=== PATIENT | female | born 1995 | race Caucasian/White ===

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

== ENCOUNTER → 2017-09-14 | Outpatient (CLI) | payer OTHER ==
[2017-09-14 09:09] LABS: 1 HR GLUCOSE 121 MG/DL (LESS THAN 180)
[2017-09-14 09:09] LABS: GLUCOSE, FASTING 81 MG/DL (LESS THAN 95)
[2017-09-14 10:29] LABS: 2 HR GLUCOSE 137 MG/DL (LESS THAN 155)
[2017-09-14 11:33] LABS: 3 HR GLUCOSE 87 MG/DL (LESS THAN 140)
== END ==
LOC: M LAB 07:16
DX: Z71.89 Other specified counseling (principal)
CPT/HCPCS: 82951

== ENCOUNTER 2018-02-17 16:48 | Outpatient (CLI) | payer OTHER | END 2018-02-17 19:13 | disposition home or self-care (01) | LOC: M LDO 16:48 | DX: O26.893 Other specified pregnancy related conditions, third trimester (principal); Z3A.36 36 weeks gestation of pregnancy | CPT/HCPCS: 76815 ==

== ENCOUNTER 2018-03-09 14:06 | Inpatient (IN) | payer OTHER ==
[2018-03-09 15:10] LABS: BEDSIDE GLUCOSE 91 MG/DL (70-105)
[2018-03-09 16:55] LABS: HEMATOCRIT 33.1 % (36.0-47.0); HEMOGLOBIN 10.7 g/dl (12.0-15.5); MEAN CORPUSCULAR HEMOGLOBIN 27.4 pg (27.0-33.0); MEAN CORPUSCULAR HGB CONC 32.3 g/dl (32.0-36.5); MEAN CORPUSCULAR VOLUME 84.9 fl (80.0-96.0); PLATELET COUNT, AUTOMATED 222 10^3/uL (150-450); WHITE BLOOD COUNT 11.4 10^3/uL (4.0-10.0)
[2018-03-09] MEDS ORDERED: ACETAMINOPHEN 325 MG TAB PO (17:00)
[2018-03-09] MEDS: ACETAMINOPHEN 500 MG TAB PO (17:13)
[2018-03-09 17:20] LABS: CREATININE,RANDOM URINE < 13.0 MG/DL
[2018-03-09 17:20] LABS: TOTAL PROTEIN,RANDOM URINE < 5.0 MG/DL (0.0-12.0)
[2018-03-09 17:42] LABS: ALT/SGPT 9 U/L (12-78); AST/SGOT 12 U/L (7-37); BILIRUBIN,TOTAL 0.3 MG/DL (0.2-1.0); CREATININE FOR GFR 0.43 MG/DL (0.55-1.30); GLUCOSE,RANDOM 76 MG/DL (LESS THAN 200); LDH LACTATE DEHYDROGENASE 148 U/L (84-246); URIC ACID 3.9 MG/DL (2.6-6.0)
[2018-03-09 19:35] LABS: ESTIMATED AVERAGE GLUCOSE 105 MG/DL (60-110); HEMOGLOBIN A1c 5.3 %
[2018-03-09] MEDS: CALCIUM CARBONATE 500 MG CHEW U/D PO (20:41)
[2018-03-09] MEDS: miSOPROStol 50 MCG 1/2 TAB (S0191) PO (21:22)
[2018-03-09 21:39] LABS: BEDSIDE GLUCOSE 80 MG/DL (70-105)
[2018-03-09] MEDS: LR 1,000 ML IV (23:41)
[2018-03-09 23:44] LABS: BEDSIDE GLUCOSE 73 MG/DL (70-105)
[2018-03-10 01:36] LABS: BEDSIDE GLUCOSE 78 MG/DL (70-105)
[2018-03-10 04:01] LABS: BEDSIDE GLUCOSE 79 MG/DL (70-105)
[2018-03-10 06:13] LABS: BEDSIDE GLUCOSE 75 MG/DL (70-105)
[2018-03-10] MEDS: miSOPROStol 25 MCG 1/4 TAB (S0191) PV (06:54)
[2018-03-10] MEDS: LR 1,000 ML IV ×3 (06:57→18:44)
[2018-03-10 08:17] LABS: BEDSIDE GLUCOSE 83 MG/DL (70-105)
[2018-03-10] MEDS: NALBUPHINE HCL 10 MG/ML AMP (J2300) IV (10:03)
[2018-03-10] MEDS: PROMETHAZINE INJ 25 MG/ML VIAL (J2550) IV (10:03)
[2018-03-10] MEDS: NALBUPHINE HCL 10 MG/ML AMP (J2300) IM (10:06)
[2018-03-10] MEDS: OXYTOCIN DRIP 30 UNITS in APPROPRIATE DILUENT 1 EA IV (11:32)
[2018-03-10 14:44] LABS: BEDSIDE GLUCOSE 74 MG/DL (70-105)
[2018-03-10] MEDS ORDERED: FENTANYL 2MCG/ML ROPIVACAINE 0.2% IN 0.9% NACL 200ML IVBAG As Ordered (16:35)
[2018-03-10 17:38] LABS: BEDSIDE GLUCOSE 84 MG/DL (70-105)
[2018-03-10] MEDS ORDERED: FENTANYL/ROPIVACAINE/NACL BAG 200 ML EPIDURAL (18:00)
[2018-03-10] MEDS ORDERED: EPIDURAL COMMENT XX (18:00)
[2018-03-10] MEDS ORDERED: LACTATED RINGER'S 1000 ML IV (18:00)
[2018-03-10] MEDS ORDERED: ONDANSETRON 4MG/2ML VIAL (J2405) IV (18:00)
[2018-03-10] MEDS ORDERED: ePHEDrine SULFATE 25 MG/5 ML(5MG/ML) SYRINGE IV (18:00)
[2018-03-10] MEDS ORDERED: REFRIGERATOR IV KEYS XX (18:00)
[2018-03-10] MEDS ORDERED: NALOXONE INJ 0.4 MG/1 ML VIAL (J2310) IV (18:00)
[2018-03-10] MEDS ORDERED: diphenhydrAMINE INJ 50MG/ML VIAL (J1200) IV (18:00)
[2018-03-10] MEDS ORDERED: EPIDURAL/PCA KEYS XX (18:00)
[2018-03-10] MEDS ORDERED: MEASLES,MUMPS,RUBELLA VACCINE INJ (MMR-II) (90707) SC (23:00)
[2018-03-10] MEDS ORDERED: RHOGAM 300 MCG (1500 IU) INJ (J2790) IM (23:00)
[2018-03-10] MEDS ORDERED: ANUSOL HC CREAM 30GM TOP (23:00)
[2018-03-10] MEDS ORDERED: ACETAMINOPHEN 500 MG TAB PO (23:00)
[2018-03-10] MEDS ORDERED: DOCUSATE SODIUM 100 MG CAP PO (23:00)
[2018-03-10] MEDS ORDERED: METHYLERGONOVINE MALEATE 0.2 MG TAB PO (23:00)
[2018-03-10 23:14] LABS: CORD GAS ABE A -5.3; CORD GAS ABE V -3.4; CORD GAS HCO3 A 23.5 MEQ/L; CORD GAS HCO3 V 23.4 MEQ/L; CORD GAS O2 SAT V 47.9 %; CORD GAS PCO2 A 58.5 mmHg; CORD GAS PH A 7.221 UNITS; CORD GAS PH V 7.306 UNITS; CORD GAS PO2 A 17.8 mmHg; CORD GAS PO2 V 21.6 mmHg; CORD GAS SBC A 18.5 MEQ/L; CORD GAS SBC V 20.3 MEQ/L; CORD GAS TCO2 A 25.3 MEQ/L; CORD GAS TCO2 V 24.9 MEQ/L
[2018-03-11] MEDS: LR 1,000 ML IV ×2 (00:51→08:51)
[2018-03-11] MEDS ORDERED: OXYTOCIN INJ 10 UNITS/ML VIAL (J2590) As Ordered (04:05)
[2018-03-11 06:58] LABS: HEMATOCRIT 28.5 % (36.0-47.0); HEMOGLOBIN 9.4 g/dl (12.0-15.5); MEAN CORPUSCULAR HEMOGLOBIN 28.2 pg (27.0-33.0); MEAN CORPUSCULAR VOLUME 85.6 fl (80.0-96.0); PLATELET COUNT, AUTOMATED 178 10^3/uL (150-450); RED BLOOD COUNT 3.33 10^6/uL (4.00-5.40); RED CELL DISTRIBUTION WIDTH 14.1 % (11.5-14.5); WHITE BLOOD COUNT 16.5 10^3/uL (4.0-10.0)
[2018-03-11] MEDS: PRENATAL VITAMINS CHEWABLE TABLET PO (07:35)
[2018-03-11] MEDS: IBUPROFEN 600 MG TAB PO ×2 (07:36→13:45)
[2018-03-11] MEDS: MOM 30ML SUSPENSION UDC PO (18:54)
[2018-03-12] MEDS: IBUPROFEN 600 MG TAB PO ×2 (07:36→19:38)
[2018-03-12] MEDS: PRENATAL VITAMINS CHEWABLE TABLET PO (08:28)
[2018-03-12] MEDS: INFLUENZA QUADRIVALENT PF VACCINE 0.5ML SYRINGE (90686) IM (08:29)
[2018-03-12] MEDS: DIBUCAINE 1% OINTMENT 30GM TOP (13:31)
[2018-03-13 07:48] LABS: HEMATOCRIT 29.1 % (36.0-47.0); HEMOGLOBIN 9.4 g/dl (12.0-15.5); MEAN CORPUSCULAR HGB CONC 32.3 g/dl (32.0-36.5); MEAN CORPUSCULAR VOLUME 86.6 fl (80.0-96.0); PLATELET COUNT, AUTOMATED 185 10^3/uL (150-450); RED BLOOD COUNT 3.36 10^6/uL (4.00-5.40); RED CELL DISTRIBUTION WIDTH 14.5 % (11.5-14.5); WHITE BLOOD COUNT 12.2 10^3/uL (4.0-10.0)
[2018-03-13] MEDS: PRENATAL VITAMINS CHEWABLE TABLET PO (08:10)
[2018-03-13] MEDS: IBUPROFEN 600 MG TAB PO (08:11)
[2018-03-13 08:15] LABS: ALBUMIN 2.2 GM/DL (3.2-5.2); ALBUMIN/GLOBULIN RATIO 0.63 (1.00-1.93); ALKALINE PHOSPHATASE 119 U/L (45-117); ALT/SGPT 11 U/L (12-78); ANION GAP 9 MEQ/L (8-16); AST/SGOT 15 U/L (7-37); BILIRUBIN,TOTAL 0.2 MG/DL (0.2-1.0); BLOOD UREA NITROGEN 6 MG/DL (7-18); CALCIUM LEVEL 8.2 MG/DL (8.5-10.1); CARBON DIOXIDE LEVEL 24 MEQ/L (21-32); CHLORIDE LEVEL 110 MEQ/L (98-107); CREATININE FOR GFR 0.44 MG/DL (0.55-1.30); GLUCOSE, FASTING 69 MG/DL (70-100); POTASSIUM SERUM 3.7 MEQ/L (3.5-5.1); SODIUM LEVEL 143 MEQ/L (136-145); TOTAL PROTEIN 5.7 GM/DL (6.4-8.2)
== END 2018-03-13 11:15 | disposition home or self-care (01) | DRG 774 ==
LOC: M LDO 14:06 → M OBS 03-11 00:34 → M LDI 18:44
PROVIDERS: Obstetrics & Gynecology
PROC: 3E0P7VZ Introduction of Hormone into Female Reproductive, Via Natural or Artificial Opening (ICD-10-PCS; 2018-03-09)
PROC: 10E0XZZ Delivery of Products of Conception, External Approach (ICD-10-PCS; principal; 2018-03-10)
DX: O24.425 Gestational diabetes mellitus in childbirth, controlled by oral hypoglycemic drugs (principal); O45.93 Premature separation of placenta, unspecified, third trimester; Z37.0 Single live birth; Z3A.38 38 weeks gestation of pregnancy; Z91.040 Latex allergy status; O14.94 Unspecified pre-eclampsia, complicating childbirth

== ENCOUNTER 2018-05-31 22:46 | Emergency (ER) | payer OTHER ==
[2018-06-01] MEDS: KETOROLAC 30 MG/ML VIAL (J1885) IV (01:15)
[2018-06-01] MEDS: ONDANSETRON 4MG/2ML VIAL (J2405) IV (01:15)
[2018-06-01 01:33] LABS: BASO % 0.2 % (0.0-1.0); EOS # 0.1 10^3/uL (0.0-0.50); EOS % 1.1 % (0.0-3.0); HEMOGLOBIN 13.2 g/dl (12.0-15.5); IMMATURE GRANULOCYTE % 0.4 % (0-3.0); LYMPH # 3.4 10^3/uL (1.5-6.5); LYMPH % 41.8 % (24.0-44.0); MEAN CORPUSCULAR HEMOGLOBIN 28.1 pg (27.0-33.0); MEAN CORPUSCULAR VOLUME 85.1 fl (80.0-96.0); MONO # 0.7 10^3/uL (0.0-0.8); NEUTROPHILS # 3.9 10^3/uL (1.8-7.7); NEUTROPHILS % 48.5 % (36.0-66.0); PLATELET COUNT, AUTOMATED 272 10^3/uL (150-450); RED CELL DISTRIBUTION WIDTH 14.6 % (11.5-14.5); WHITE BLOOD COUNT 8.1 10^3/uL (4.0-10.0)
[2018-06-01 02:01] LABS: ANION GAP 9 MEQ/L (8-16); BLOOD UREA NITROGEN 9 MG/DL (7-18); CALCIUM LEVEL 8.5 MG/DL (8.5-10.1); CARBON DIOXIDE LEVEL 24 MEQ/L (21-32); CHLORIDE LEVEL 108 MEQ/L (98-107); CK-MB VALUE MASS < 1.0 NG/ML (<3.6); CPK CREATINE PHOSPHOKINASE 98 U/L (26-192); CREATININE FOR GFR 0.54 MG/DL (0.55-1.30); GLOMERULAR FILTRATION RATE > 60.0 (>60); GLUCOSE, FASTING 91 MG/DL (70-100); MB/CK RELATIVE INDEX 1.02 (< OR =4); POTASSIUM SERUM 4.3 MEQ/L (3.5-5.1); SODIUM LEVEL 141 MEQ/L (136-145); TROPONIN I < 0.02 NG/ML (< 0.10)
== END 2018-06-01 02:23 | disposition home or self-care (01) ==
LOC: M ED 06-01 02:23
DX: R07.89 Other chest pain (principal); R42 Dizziness and giddiness; R11.0 Nausea; I10 Essential (primary) hypertension; Z87.19 Personal history of other diseases of the digestive system; Z79.899 Other long term (current) drug therapy; Z91.040 Latex allergy status
CPT/HCPCS: J2405

== ENCOUNTER → 2018-11-01 | Outpatient (CLI) | payer OTHER ==
[~2018-11-01] MED LIST: COLA100C5 PO; IBUP-1114 PO; MAPA500T2 PO; METF500T13 PO; NAPR-837 PO; PRENTAB9 PO; RANI15TA PO
--- NOTE | 2018-11-01 10:41 | REP ---
FIRST TRIMESTER ULTRASOUND: Real-time sonographic evaluation of the pelvis was performed utilizing transabdominal and endovaginal technique. The uterus measures 9.4 x 4.4 x 7.5 cm. There is endometrial thickening at 22 mm. No gestational sac is seen in the uterus. Right ovary measures 4.3 x 2.6 x 3.5 cm. Left ovary measures 3.0 x 3.1 x 1.9 cm. There is no evidence of ovarian torsion. Complex structure in the right ovary may represent a complex corpus luteum 2.9 x 1.6 x 2.8 cm. No free fluid is seen. IMPRESSION: Thickened endometrium. No gestational sac seen in the endometrial canal. Complex structure in the right ovary may represent a complex corpus luteum 2.9 cm in diameter. Differential diagnosis would include very early intrauterine , missed AB or ectopic . Suggest correlation with serial quantitaive beta HCG values and followup ultrasound as necessary. Electronically Signed by Jesus Mukherjee MD 11/01/2018 04:26 P
== END ==
LOC: M RAD 09:16
PROVIDERS: ATTEND Midwife
DX: R93.5 Abnormal findings on diagnostic imaging of other abdominal regions, including retroperitoneum (principal)

== ENCOUNTER → 2019-08-15 | Outpatient (CLI) | payer OTHER ==
--- NOTE | 2019-08-15 18:00 | REP ---
Focused right breast sonography: History: Palpable lump in the 9 o'clock position. The patient reports that this has been present for 2 years. The patient discontinued breast-feeding 3 weeks prior. No comparison breast imaging. Sonographic findings: Heterogeneous fibroglandular background echotexture is seen. At the site of the palpable lump at the 9 o'clock position there is a hypoechoic very superficial subdermal nodule measuring 10 x 7 x 6 mm in overall dimension. There is no discernible blood flow. There is some enhanced through transmission and well-defined margins. Its long axis is parallel to the skin. It is compatible with but not specific for fibroadenoma. Impression: BIRADS category III probably benign findings. 10 mm subdermal hypoechoic nodule may reflect complex cyst versus fibroadenoma. Repeat focused right breast sonography recommended in 6 months. Clinical follow-up is advised.
== END ==
LOC: M WHC 14:48
PROVIDERS: ATTEND Nurse Practitioner Women's Health
DX: N63.11 Unspecified lump in the right breast, upper outer quadrant (principal)

== ENCOUNTER 2019-10-21 11:50 | Emergency (ER) | payer OTHER ==
[~2019-10-21] VITALS: Ht 157.5 cm; Wt 79.5 kg
[2019-10-21 12:54] LABS: BASO % 0.4 % (0.0-1.0); EOS # 0.1 10^3/uL (0.0-0.5); EOS % 0.5 % (0.0-3.0); HEMOGLOBIN 13.7 g/dl (12.0-15.5); LYMPH % 31.8 % (24.0-44.0); MEAN CORPUSCULAR HEMOGLOBIN 28.7 pg (27.0-33.0); MEAN CORPUSCULAR HGB CONC 33.4 g/dl (32.0-36.5); MONO # 0.7 10^3/uL (0.0-0.8); MONO % 7.1 % (0.0-5.0); NEUTROPHILS # 5.5 10^3/uL (1.5-8.5); NEUTROPHILS % 59.7 % (36.0-66.0); PLATELET COUNT, AUTOMATED 269 10^3/uL (150-450); RED BLOOD COUNT 4.77 10^6/uL (4.00-5.40); WHITE BLOOD COUNT 9.3 10^3/uL (4.0-10.0)
[2019-10-21 13:24] LABS: BLOOD UREA NITROGEN 9 MG/DL (7-18); CARBON DIOXIDE LEVEL 23 MEQ/L (21-32); CHLORIDE LEVEL 110 MEQ/L (98-107); CREATININE FOR GFR 0.66 MG/DL (0.55-1.30); GLOMERULAR FILTRATION RATE > 60.0 (>60); GLUCOSE, FASTING 114 MG/DL (70-100); POTASSIUM SERUM 3.9 MEQ/L (3.5-5.1); SODIUM LEVEL 141 MEQ/L (136-145)
[2019-10-21] MEDS ORDERED: ONDANSETRON 4 MG ORAL DISINTEGRATING TAB (Q0162 PER 1MG) PO ONE (13:45)
[2019-10-21] MEDS ORDERED: MECLIZINE 25 MG TABLET PO ONE (13:45)
[2019-10-21] MEDS ORDERED: ACETAMINOPHEN 325 MG TAB PO ONE (14:45)
[2019-10-21] MEDS ORDERED: diazePAM 2 MG TAB PO ONE (14:45)
[2019-10-21] MEDS ORDERED: ONDA4TAB6 PO (15:50)
[2019-10-21] MEDS ORDERED: MECL1TAB31 PO (15:50)
[2019-10-21 16:04] VITALS: BP 131/78
--- NOTE | 2019-10-21 16:41 | REP ---
CT BRAIN WITHOUT CONTRAST: CT brain performed without IV contrast. Coronal reconstruction images are performed. The ventricles are normal in size and position with no midline shift or mass effect. Mukherjee/white differentiation is well maintained. There is no acute hemorrhage or extra-axial fluid collection. Bone window examination is unremarkable. IMPRESSION: Negative noncontrast CT brain. Electronically Signed by Jesus Mukherjee MD 10/21/2019 04:53 P
== END 2019-10-21 16:07 | disposition home or self-care (01) ==
LOC: M ED 11:50
DX: H81.10 Benign paroxysmal vertigo, unspecified ear (principal); I10 Essential (primary) hypertension; Z91.040 Latex allergy status
CPT/HCPCS: 36415; 70450; 80048; 84702; 85025; 99284; Q0162

== ENCOUNTER 2019-11-13 15:07 | Emergency (ER) | payer OTHER ==
[~2019-11-13] VITALS: Ht 157.5 cm; Wt 77.8 kg
[~2019-11-13 15:07] MED LIST changes: +MECL1TAB31 PO; +ONDA4TAB6 PO
[2019-11-13] MEDS ORDERED: ACET-683 PO (15:15)
[2019-11-13] MEDS ORDERED: NS 1,000 ML IV ONE (16:00)
[2019-11-13 16:02] LABS: BASO % 0.3 % (0.0-1.0); EOS % 0.4 % (0.0-3.0); HEMATOCRIT 42.9 % (36.0-47.0); HEMOGLOBIN 14.4 g/dl (12.0-15.5); LYMPH # 2.7 10^3/uL (1.5-5.0); LYMPH % 28.7 % (24.0-44.0); MEAN CORPUSCULAR HEMOGLOBIN 29.3 pg (27.0-33.0); MEAN CORPUSCULAR HGB CONC 33.6 g/dl (32.0-36.5); MEAN CORPUSCULAR VOLUME 87.2 fl (80.0-96.0); MONO # 0.6 10^3/uL (0.0-0.8); MONO % 6.2 % (0.0-5.0); NEUTROPHILS # 5.9 10^3/uL (1.5-8.5); NEUTROPHILS % 63.6 % (36.0-66.0); PLATELET COUNT, AUTOMATED 287 10^3/uL (150-450); RED BLOOD COUNT 4.92 10^6/uL (4.00-5.40); WHITE BLOOD COUNT 9.2 10^3/uL (4.0-10.0)
[2019-11-13 16:10] LABS: HCG, SERUM QUALITATIVE NEGATIVE (NEGATIVE)
[2019-11-13 16:22] LABS: BLOOD UREA NITROGEN 12 MG/DL (7-18); CALCIUM LEVEL 9.1 MG/DL (8.5-10.1); CARBON DIOXIDE LEVEL 24 MEQ/L (21-32); CHLORIDE LEVEL 106 MEQ/L (98-107); CK-MB VALUE MASS < 1.0 NG/ML (<3.6); CPK CREATINE PHOSPHOKINASE 82 U/L (26-192); CREATININE FOR GFR 0.46 MG/DL (0.55-1.30); ETHYL ALCOHOL (ETHANOL) < 0.003 % (0.000-0.010); GLOMERULAR FILTRATION RATE > 60.0 (>60); GLUCOSE, FASTING 99 MG/DL (70-100); MB/CK RELATIVE INDEX 1.22 (< OR =4); POTASSIUM SERUM 3.5 MEQ/L (3.5-5.1); SODIUM LEVEL 138 MEQ/L (136-145); THYROID STIMULATING HORMONE 0.815 uIU/ML (0.358-3.740); TROPONIN I < 0.02 NG/ML (< 0.10)
[2019-11-13 16:45] VITALS: BP 106/64
[2019-11-13 17:14] LABS: AMPHETAMINES LEVEL URINE NEGATIVE (NEGATIVE); BARBITURATES URINE NEGATIVE (NEGATIVE); BENZODIAZEPINES URINE NEGATIVE (NEGATIVE); CANNABINOIDS URINE POSITIVE (NEGATIVE); COCAINE METABOLITE URINE NEGATIVE (NEGATIVE); METHADONE URINE NEGATIVE (NEGATIVE); OPIATES URINE NEGATIVE (NEGATIVE); PHENCYCLIDINE URINE NEGATIVE (NEGATIVE)
--- NOTE | 2019-11-14 16:41 | ECGEPIP ---
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
== END 2019-11-13 16:52 | disposition home or self-care (01) ==
LOC: M ED 15:07
DX: R55 Syncope and collapse (principal); I10 Essential (primary) hypertension; Z91.040 Latex allergy status
CPT/HCPCS: 80048; 80307; 81001; 82550; 82553; 83735; 84443; 84484; 84703; 85025; 85730; 87086; 93005; 93041; 94760; 96360; 99284; G0480

== ENCOUNTER → 2020-05-17 | Outpatient (CLI) | payer OTHER ==
[~2020-05-17] MED LIST changes: +ACET-683 PO
[2020-05-17 12:47] LABS: BASO % 0.4 % (0.0-1.0); EOS # 0.1 10^3/uL (0.0-0.5); HEMATOCRIT 44.5 % (36.0-47.0); HEMOGLOBIN 14.6 g/dl (12.0-15.5); LYMPH # 2.4 10^3/uL (1.5-5.0); LYMPH % 31.8 % (24.0-44.0); MEAN CORPUSCULAR HGB CONC 32.8 g/dl (32.0-36.5); MEAN CORPUSCULAR VOLUME 91.6 fl (80.0-96.0); MONO # 0.8 10^3/uL (0.0-0.8); MONO % 10.4 % (0.0-5.0); NEUTROPHILS # 4.3 10^3/uL (1.5-8.5); NEUTROPHILS % 55.9 % (36.0-66.0); PLATELET COUNT, AUTOMATED 303 10^3/uL (150-450); RED BLOOD COUNT 4.86 10^6/uL (4.00-5.40); WHITE BLOOD COUNT 7.6 10^3/uL (4.0-10.0)
[2020-05-17 13:49] LABS: ALBUMIN 4.4 GM/DL (3.2-5.2); ALT/SGPT 13 U/L (12-78); AMYLASE 41 U/L (25-115); BILIRUBIN,TOTAL 0.4 MG/DL (0.2-1.0); BLOOD UREA NITROGEN 8 MG/DL (7-18); CALCIUM LEVEL 9.3 MG/DL (8.5-10.1); CARBON DIOXIDE LEVEL 25 MEQ/L (21-32); CHLORIDE LEVEL 106 MEQ/L (98-107); CREATININE FOR GFR 0.56 MG/DL (0.55-1.30); FREE T4 1.31 NG/DL (0.76-1.46); GLOMERULAR FILTRATION RATE > 60.0 (>60); GLUCOSE, FASTING 84 MG/DL (70-100); LIPASE 67 U/L (73-393); POTASSIUM SERUM 4.6 MEQ/L (3.5-5.1); SODIUM LEVEL 138 MEQ/L (136-145); THYROID STIMULATING HORMONE 0.762 uIU/ML (0.358-3.740); TOTAL PROTEIN 7.5 GM/DL (6.4-8.2)
--- NOTE | 2020-05-18 03:27 | REP ---
INDICATION: LOWER ABDOMINAL PAIN, DIARRHEA COMPARISON: None. TECHNIQUE: Supine view of the abdomen and pelvis. FINDINGS: Bowel gas pattern is nonspecific and without obstruction or perforation. No organomegaly. No abnormal calcifications. Skeletal structures intact. IMPRESSION: Normal abdominal radiograph. <Electronically signed by Mayo Lynch > 05/18/20 [id number]
== END ==
LOC: M WUC 10:25
PROVIDERS: ATTEND Physician Assistant
DX: R19.7 Diarrhea, unspecified (principal); R10.30 Lower abdominal pain, unspecified

== ENCOUNTER 2020-07-17 08:25 | Emergency (ER) | payer OTHER ==
[~2020-07-17] VITALS: Ht 157.5 cm; Wt 72.5 kg
--- OUTSIDE RECORDS SUMMARY | 2020-07-17 08:32 | CCD ---
Author Author [facility] Organization [facility] Address Unknown Phone Unavailable Care Team Providers Care Qa Manager Name Role Phone Angel ALVARENGA MD Unavailable Unavailable VENERUSAngel MD Unavailable Unavailable VENERUSAngel MD Unavailable Unavailable VENERUSAngel MD Unavailable Unavailable VENERUSAngel MD Unavailable Unavailable VENERUSAngel MD Unavailable Unavailable VENERUSAngel MD Unavailable Unavailable VENERUSAngel MD Unavailable Unavailable VENERUSAngel MD Unavailable Unavailable LETTIERE, Sebastián FRAZIER Unavailable Unavailable LETTIERE, Sebastián FRAZIER Unavailable Unavailable LETTIERE, Sebastián FRAZIER Unavailable Unavailable LETTIERE, Sebastián FRAZIER Unavailable Unavailable LETTIERE, Sebastián FRAZIER Unavailable Unavailable LETTIERE, Sebastián FRAZIER Unavailable Unavailable LETTIERE, Sebastián FRAZIER Unavailable Unavailable LETTIERE, Sebastián FRAZIER Unavailable Unavailable LETTIERE, Sebastián FRAZIER Unavailable Unavailable LETTIERE, Sebastián FRAZIER Unavailable Unavailable LETTIERE, Sebastián FRAZIER Unavailable Unavailable LETTIERE, Sebastián FRAZIER Unavailable Unavailable LETTIERE, Sebastián FRAZIER Unavailable Unavailable LETTIERE, Sebastián FRAZIER Unavailable Unavailable LETTIERE, Sebastián FRAZIER Unavailable Unavailable LETTIERE, Sebastián FRAZIER Unavailable Unavailable LETTIERE, Sebastián FRAZIER Unavailable Unavailable LETTIERE, Sebastián FRAZIER Unavailable Unavailable LETTIERE, Sebastián FRAZIER Unavailable Unavailable LETTIERE, Sebastián FRAZIER Unavailable Unavailable LETTIERE, A KEISHA PA Unavailable Unavailable LETTIERE, A KEISHA PA Unavailable Unavailable LETTIERE, A KEISHA PA Unavailable Unavailable LETTIERE, A KEISHA PA Unavailable Unavailable LETTIERE, A KEISHA PA Unavailable Unavailable LETTIERE, A KEISHA PA Unavailable Unavailable LETTIERE, A KEISHA PA Unavailable Unavailable LETTIERE, A KEISHA PA Unavailable Unavailable LETTIERE, A KEISHA PA Unavailable Unavailable Re-disclosure Warning The records that you are about to access may contain information from federally-assisted alcohol or drug abuse programs. If such information is present, then the following federally mandated warning applies: This information has been disclosed to you from records protected by federal confidentiality rules (42 CFR part 2). The federal rules prohibit you from making any further disclosure of this information unless further disclosure is expressly permitted by the written consent of the person to whom it pertains or as otherwise permitted by 42 CFR part 2. A general authorization for the release of medical or other information is NOT sufficient for this purpose. The Federal rules restrict any use of the information to criminally investigate or prosecute any alcohol or drug abuse patient.The records that you are about to access may contain highly sensitive health information, the redisclosure of which is protected by Article 27-F of the [facility] Public Health law. If you continue you may have access to information: Regarding HIV / AIDS; Provided by facilities licensed or operated by the [facility] Office of Mental Health; or Provided by the [facility] Office for People With Developmental Disabilities. If such information is present, then the following [facility] mandated warning applies: This information has been disclosed to you from confidential records which are protected by state law. State law prohibits you from making any further disclosure of this information without the specific written consent of the person to whom it pertains, or as otherwise permitted by law. Any unauthorized further disclosure in violation of state law may result in a fine or fdc sentence or both. A general authorization for the release of medical or other information is NOT sufficient authorization for further disc losure. Allergies and Adverse Reactions Type Description Substance Reaction Status Data Source(s ) No Known Drug Allergies No Known Drug Allergies [facility] ENVIRONMENTAL LATEX LATEX [facility] Substance/Environmental Agent Allergy Substance/Environmenta l Agent Allergy Latex [facility] ([facility] Encounters Encounter Providers Location Date Indications Data Source(s ) Outpatient ED-IMAG 05/29/2020 01:47:00 PM EST - 05/29/2020 01:48:00 PM EST LLQ ABD PAIN [facility] LLQ ABD PAIN Patient discharged. Outpatient Attender: KEISHA garnica 05/17/2020 08:30:00 AM EST [facility] ([facility], [facility]) [facility] 12/13/2019 08:02:44 PM EDT [facility] Emergency Attender: NOAH ALVARENGA MD 11/09 05:11:00 PM EDT - 11/10/2019 07:05:00 PM EDT [facility] Patient discharged. [facility] 08/03/2019 09:01:14 PM EST [facility] 08/03/2019 12:05:01 PM EST [facility] 08/03/2019 12:01:01 PM EST [facility] Medications Medication Brand Name Start Date Product Form Dose Route Admi nistrative Instructions Pharmacy Instructions Status Indications Reaction Description Data Source(s) No Active Medications 05/17/2020 12:00:00 AM EST completed [facility] ([facility]) Dicyclomine Hydrochloride 10 MG Oral Capsule Dicyclomine HCL 05/17/2020 12:00:00 AM EST ORAL active [facility] ([facility]) Alprazolam 0.5 MG Oral Tablet Alprazolam 12/12/2019 12:00:00 AM EDT ORAL active [facility] ([facility]) Ondansetron 4 MG Disintegrating Oral Tablet Ondansetron 10/21/2019 12:00:00 AM EDT completed [facility] ([facility]) Meclizine Hydrochloride 25 MG Oral Tablet Meclizine HCL 10/21/2019 12:00:00 AM EDT completed [facility] ([facility]) Insurance Providers Payer name Policy type / Coverage type Policy ID Covered alliance party ID Covered alliance party's relationship to suarez Policy Suarez Plan Information [facility] 1DayLater [id number] [facility] HUMANA - O/P [id number] 01 [id number] SELF PAY ONLY SP [facility] ACTIVE DUTY [id number] SP [id number] [facility] HUMANA - O/P [id number] 01 [id number] SELF PAY O [id number] S [id number] HUMANA [facility] REG O [id number] S [id number] ACTIVE DUTY [id number] SP [id number] [employer] [facility] TIA O [id number] S [id number] N REGIONAL CLAIMS LUIS -O/P [id number] 18 [id number] Problems, Conditions, and Diagnoses Code Display Name Description Problem Type Effective Dates Data Source(s) [id number] Syncope and collapse Syncope and collapse Problem 11/17/2019 12:00:00 AM EDT [facility] ([facility]) [id number] Personal history of nicotine dependence Personal history of nicotine dependence Diagnosis 11/10/2019 05:11:00 PM EDT [facility] R55 Syncope and collapse Syncope and collapse Diagnosis 11/10/2019 05:11:00 PM EDT [facility] Surgeries/Procedures Procedure Description Date Indications Data Source(s) ELECTROENCEPHALOGRAM W/REC AWAKE&ASLEEP 01/09/2020 12: 00:00 AM EDT [facility] ([facility]) ELECTROENCEPHALOGRAM W/REC AWAKE&ASLEEP 01/09/2020 12: 00:00 AM EDT [facility] ([facility]) Results ID Date Data Source [id number] 05/31/2020 11:13:00 AM [facility] Imaging Services Department Imaging Report [address], [place] [address] %(RAD)RES..mtdd.print.filter("line") Name: JACIEL RINCON : 1995 Age/Sex: 25F Ordering Provider: ALANNAH KINNEY MD Med Rec #: [id number] Reg Status: DEP REF Room #: Date of Service: 05/29/20 Report Number: [id number] cc:ALANNAH KINNEY MD; PCP None Send Report To: [id number] CT/CT Abdomen & Pelvis No Contras Reason for exam: LEFT LOWER QUAD ABDOMINAL TENDERNESS FINDINGS: The liver, spleen, pancreas, adrenals, kidneys appear unremarkable. The gallbladder is contracted but otherwise appears unremarkable. There is no bowel dilatation or evidence of obstruction. No free fluid, pneumoperitoneum, or lymphadenopathy is identified. A very small fat containing umbilical hernia is present. The appendix appears unremarkable without any adjacent inflammation to suggest appendicitis. There are no signs of diverticulitis. The uterus and ovaries are unremarkable. The urinary bladder is nondistended but appears grossly unremarkable. The aorta is normal size without focal aneurysm. There is some mild atelectasis/scar at bilateral lung bases. No suspicious osseous lesion or acute fracture is identified. Moderate to large amount of fecal matter seen in the colon. IMPRESSION: Very small fat containing umbilical hernia. Moderate to large amount of fecal matter in portions of the colon. No acute disease process. While performing the above CT exam, the following dose reduction techniques wereused: *Automated exposure control *Adjustment of the mA and/or kV according to patient size *Use of iterative reconstruction technique CT Dose in mGy: Contrast Agent: Amount in ml: Method of Administration: REPORT SIGNATURE ON FILE Reported By: Ubaldo Chavez MD <Electronically signed by Ubaldo Chavez MD> 06/01/20 1055 Dictation Date/Time: 05/29/20 1447 Transcribed Date/Time: 05/31/20 1113 Litigation Specialist: JAX Name Value Range Interpretation Code Description Data Ariana rce(s) Supporting Document(s) ID Date Data Source [id number] 05/17/2020 10:28:00 AM EST [facility] ([facility]) Name Value Range Interpretation Code Description Data Ariana rce(s) Supporting Document(s) C reactive protein [Mass/volume] in Serum or Plasma by High sensitivity method 0.30 mg/dL 0.00-0.30 [facility] ([facility], [facility]) Patient notified with results today IgA [Mass/volume] in Serum or Plasma 102.0 mg/dL 70-400 [facility] ([facility]) Patient notified with results today Tissue transglutaminase IgA Ab [Units/volume] in Serum Labor atory test result 0-3 [facility]) Patient notified with results today ID Date Data Source [id number] 05/17/2020 10:28:00 AM EST [facility] ([facility]) Name Value Range Interpretation Code Description Data Ariana rce(s) Supporting Document(s) Lipoprotein lipase [Enzymatic activity/volume] in Serum or Plasm a 67 U/L 73-393 [facility] ([facility]) Patient notified with results today Amylase [Enzymatic activity/volume] in Serum or Plasma 41 U/L 25- 115 [facility]) Patient notified with results today ID Date Data Source [id number] 05/17/2020 10:28:00 AM EST [facility] ([facility]) Name Value Range Interpretation Code Description Data Ariana rce(s) Supporting Document(s) Thyroid Stimulating Hormone 0.762 uIU/ML 0.358-3.740 [facility] ([facility]) Patient notified with results today Free T4 1.31 ng/dL 0.76-1.46 [facility]) Patient notified with results today ID Date Data Source [id number] 05/17/2020 10:28:00 AM EST [facility]) Name Value Range Interpretation Code Description Data Ariana rce(s) Supporting Document(s) Glucose, Fasting 84 mg/dL 70-100 [facility] ([facility]) Patient notified with results today Blood Urea Nitrogen 8 mg/dL 7-18 [facility] ([facility]) Patient notified with results today Creatinine For GFR 0.56 mg/dL 0.55-1.30 [facility] ([facility]) Patient notified with results today Glomerular Filtration Rate Laboratory test result [facility] ([facility]) Patient notified with results today Potassium Serum 4.6 meq/L 3.5-5.1 [facility] ([facility]) Patient notified with results today Sodium Level 138 meq/L 136-145 [facility] ([facility]) Patient notified with results today Chloride Level 106 meq/L 98-107 [facility] ([facility]) Patient notified with results today Carbon Dioxide Level 25 meq/L 21-32 [facility] ([facility]) Patient notified with results today Calcium Level 9.3 mg/dL 8.5-10.1 [facility] ([facility]) Patient notified with results today Anion Gap 7 meq/L 8-16 [facility] ([facility]) Patient notified with results today Ast/Sgot 7 U/L 7-37 [facility] ([facility]) Patient notified with results today Alt/SGPT 13 U/L 12-78 [facility] ([facility]) Patient notified with results today Alkaline Phosphatase 99 U/L 45-117 [facility] ([facility]) Patient notified with results today Total Protein 7.5 GM/DL 6.4-8.2 [facility] ([facility]) Patient notified with results today Bilirubin,Total 0.4 mg/dL 0.2-1.0 [facility] ([facility]) Patient notified with results today Albumin 4.4 GM/DL 3.2-5.2 [facility] ([facility]) Patient notified with results today Albumin/Globulin Ratio 1.4 1.2-2.2 [facility] ([facility]) Patient notified with results today ID Date Data Source [id number] 05/17/2020 10:28:00 AM EST [facility] ([facility]) Name Value Range Interpretation Code Description Data Ariana rce(s) Supporting Document(s) White Blood Count 7.6 10 4.0-10.0 [facility] ([facility]) Patient notified with results today Red Blood Count 4.86 10 4.00-5.40 [facility]) Patient notified with results today Hemoglobin 14.6 g/dL 12.0-15.5 [facility]) Patient notified with results today Mean Corpuscular Volume 91.6 fl 80.0-96.0 M [facility]) Patient notified with results today Hematocrit 44.5 % 36.0-47.0 [facility] ([facility]) Patient notified with results today Mean Corpuscular Hemoglobin 30.0 pg 27.0-33.0 [facility] ([facility]) Patient notified with results today Mean Corpuscular HGB Conc 32.8 g/dL 32.0-36.5 [facility] ([facility]) Patient notified with results today Red Cell Distribution Width 12.3 % 11.5-14.5 [facility] ([facility]) Patient notified with results today Neutrophils % 55.9 % 36.0-66.0 [facility] ([facility]) Patient notified with results today Platelet Count, Automated 303 10 150-450 [facility] ([facility]) Patient notified with results today [place] % 10.4 % 0.0-5.0 [facility] ([facility]) Patient notified with results today Lymph % 31.8 % 24.0-44.0 [facility] ([facility]) Patient notified with results today Eos % 1.0 % 0.0-3.0 [facility] ([facility]) Patient notified with results today Immature Granulocyte % 0.5 % 0-3.0 [facility] ([facility]) Patient notified with results today Baso % 0.4 % 0.0-1.0 [facility] ([facility]) Patient notified with results today Nucleated Red Blood Cell % 0.0 % 0-0 [facility] ([facility]) Patient notified with results today Neutrophils # 4.3 10 1.5-8.5 [facility] ([facility]) Patient notified with results today Lymph # 2.4 10 1.5-5.0 [facility] ([facility], [facility]) Patient notified with results today [place] # 0.8 10 0.0-0.8 [facility] ([facility], [facility]) Patient notified with results today Eos # 0.1 10 0.0-0.5 [facility] ([facility], [facility]) Patient notified with results today Baso # 0.0 10 0.0-0.2 [facility] ([facility], [facility]) Patient notified with results today ID Date Data Source [id number] 11/14/2019 01:37:00 [place] [address] RESPIRATORY CARE REPORT ==== ---------NAME------- NUMBER SEX AGE ADMIT DISC. XRAY# F/C ERICJESSICA Quan [id number] F 24 11/10/19 11/10/19 [id number] SB4 E/R DATE OF : 1995 M/R# [id number] #: [id number] TR-08 LOCATION: EMERGENCY DEPT EKG [id number] COMPLE TE:11/11/19 01:18 T [id number] PHYSICIAN: LYLE MAGANA Name Value Range Interpretation Code Description Data Ariana rce(s) Supporting Document(s) ID Date Data Source [id number] 11/14/2019 10:28:00 [place] [address] PHONE: [phone] FAX: [phone] Name .................. : RINCONJESSICA Quan Acct Number.................. : [id number] ROOM. ................. : TR-08 MR Number ................... : [id number] Stay type ............. : E/R Discharge Date......... ... : 11/10/19 Admit Date ... ...... : 11/10/19 Admit Phys .................... : VENERUS BR Date of ....... : 1995 Family Phys ................... : UNKNOWN Phone .................. : [phone] Age ................................ : 24 Film# .................. .:[id number] Sex ................................. : F Unsigned transcriptions are preliminary reports and do not represent a medical or legal document CT HEAD W/O CONTRAST [id number] COMPLETE:11/10/19 19:24 [facility] [id number] Reason(s): Syncope CT HEAD WITHOUT CONTRAST, 11/10/19: INDICATION: Syncope. FINDINGS: The ventricular system is normal. No evidence for parenchymal loss is noted. No evidence for masses or mass effects are identified. No evidence for subdural, epidural, or subarachnoid hemorrhage is noted. The bones and soft tissues also appear normal. IMPRESSION: Unremarkable CT scan of the head wit hout intravenous contrast. While performing the above CT examination, radiation dose reduction was accomplished utilizing automated exposure control, adjusting of the mA and kV based on the patient's body size and/or the use of imperative reconstructive techniques. CT dose 778.9 mGycm. Electronically Reviewed and Signed By Avi Casanova M.D. , 11/14/19 10:28, DAVID Transcribe Initials: SSR, Transcribe Date: 11/11/19 11:39, Dictation Date: Copy for: EMERGENCY DEPT via modem Copy for: 710 MED REC DISCHARGED Page 1 of 1 Name Value Range Interpretation Code Description Data Ariana rce(s) Supporting Document(s) ID Date Data Source [id number] 11/13/2019 03:36:00 PM EDT [facility] ([facility], ) Name Value Range Interpretation Code Description Data Ariana rce(s) Supporting Document(s) Eosinophils [#/volume] in Blood by Automated count 0.0 0.0-0.5 [facility] ([facility], ) ID Date Data Source [id number] 11/13/2019 03:36:00 PM EDT [facility] ([facility], ) Name Value Range Interpretation Code Description Data Ariana rce(s) Supporting Document(s) Monocytes [#/volume] in Blood by Automated count 0.6 0.0-0.8 [facility] ([facility], ) ID Date Data Source [id number] 11/13/2019 03:36:00 PM EDT [facility] ([facility], ) Name Value Range Interpretation Code Description Data Ariana rce(s) Supporting Document(s) Lymphocytes [#/volume] in Blood by Automated count 2.7 1.5-5.0 [facility] ([facility], ) ID Date Data Source [id number] 11/13/2019 03:36:00 PM EDT [facility] ([facility], ) Name Value Range Interpretation Code Description Data Ariana rce(s) Supporting Document(s) Neutrophils [#/volume] in Blood by Automated count 5.9 1.5-8.5 [facility] ([facility], ) ID Date Data Source [id number] 11/13/2019 03:36:00 PM EDT [facility] ([facility], ) Name Value Range Interpretation Code Description Data Ariana rce(s) Supporting Document(s) Nucleated erythrocytes/100 leukocytes [Ratio] in Blood by Au tomated count 0.0 0-0 [facility] ([facility], ) ID Date Data Source [id number] 11/13/2019 03:36:00 PM EDT [facility] ([facility] ) Name Value Range Interpretation Code Description Data Ariana rce(s) Supporting Document(s) Immature granulocytes/100 leukocytes in Blood by Automated count 0.8 0-3.0 [facility] ([facility], ) ID Date Data Source [id number] 11/13/2019 03:36:00 PM EDT [facility] ([facility] ) Name Value Range Interpretation Code Description Data Ariana rce(s) Supporting Document(s) Basophils/100 leukocytes in Blood by Automated count 0.3 0.0-1 .0 [facility] ([facility], ) ID Date Data Source [id number] 11/13/2019 03:36:00 PM EDT [facility] ([facility] ) Name Value Range Interpretation Code Description Data Ariana rce(s) Supporting Document(s) Eosinophils/100 leukocytes in Blood by Automated count 0.4 0.0 -3.0 [facility] ([facility], ) ID Date Data Source [id number] 11/13/2019 03:36:00 PM EDT [facility] ([facility] ) Name Value Range Interpretation Code Description Data Ariana rce(s) Supporting Document(s) Monocytes/100 leukocytes in Blood by Automated count 6.2 0.0-5 .0 [facility] ([facility], ) ID Date Data Source [id number] 11/13/2019 03:36:00 PM EDT [facility] ([facility] ) Name Value Range Interpretation Code Description Data Ariana rce(s) Supporting Document(s) Lymphocytes/100 leukocytes in Blood by Automated count 28.7 24. 0-44.0 [facility] ([facility], ) ID Date Data Source [id number] 11/13/2019 03:36:00 PM EDT [facility] ([facility] ) Name Value Range Interpretation Code Description Data Ariana rce(s) Supporting Document(s) Neutrophils [#/volume] in Blood by Automated count 63.6 36.0-66 .0 [facility] ([facility]) ID Date Data Source [id number] 11/13/2019 03:36:00 PM EDT [facility] ([facility] ) Name Value Range Interpretation Code Description Data Ariana rce(s) Supporting Document(s) Platelets [#/volume] in Blood by Automated count 287 150-450 [facility] ID Date Data Source [id number] 11/13/2019 03:36:00 PM EDT [facility] Name Value Range Interpretation Code Description Data Ariana rce(s) Supporting Document(s) Erythrocyte distribution width [Ratio] by Automated count 12.9 11.5-14.5 [facility] ID Date Data Source [id number] 11/13/2019 03:36:00 PM EDT [facility] Name Value Range Interpretation Code Description Data Ariana rce(s) Supporting Document(s) Erythrocyte mean corpuscular hemoglobin concentration [Mass/volume] by Automated count 33.6 32.0-36.5 [facility] ID Date Data Source [id number] 11/13/2019 03:36:00 PM EDT [facility] Name Value Range Interpretation Code Description Data Ariana rce(s) Supporting Document(s) Erythrocyte mean corpuscular hemoglobin [Entitic mass] by Au tomated count 29.3 27.0-33.0 [facility] ([facility], ) ID Date Data Source [id number] 11/13/2019 03:36:00 PM EDT [facility] Name Value Range Interpretation Code Description Data Ariana rce(s) Supporting Document(s) Erythrocyte mean corpuscular volume [Entitic volume] by Auto mated count 87.2 80.0-96.0 [facility] ([facility], ) ID Date Data Source [id number] 11/13/2019 03:36:00 PM EDT [facility] Name Value Range Interpretation Code Description Data Ariana rce(s) Supporting Document(s) Hematocrit [Volume Fraction] of Blood by Automated count 42.9 3 6.0-47.0 [facility] ([facility], ) ID Date Data Source [id number] 11/13/2019 03:36:00 PM EDT [facility] Name Value Range Interpretation Code Description Data Ariana rce(s) Supporting Document(s) Hemoglobin [Mass/volume] in Blood 14.4 12.0-15.5 [facility] ([facility]) ID Date Data Source [id number] 11/13/2019 03:36:00 PM EDT [facility] ([facility]) Name Value Range Interpretation Code Description Data Ariana rce(s) Supporting Document(s) Erythrocytes [#/volume] in Blood by Automated count 4.92 4.00-5 .40 [facility] ([facility]) ID Date Data Source [id number] 11/13/2019 03:36:00 PM EDT [facility] ([facility]) Name Value Range Interpretation Code Description Data Ariana rce(s) Supporting Document(s) Leukocytes [#/volume] in Blood by Automated count 9.2 4.0-10.0 [facility] ([facility]) ID Date Data Source [id number] 11/13/2019 03:36:00 PM EDT [facility] ([facility]) Name Value Range Interpretation Code Description Data Ariana rce(s) Supporting Document(s) Choriogonadotropin.beta subunit ( test) [Pres ence] in Serum or Plasma Laboratory test result [facility] ([facility]) ID Date Data Source [id number] 11/13/2019 03:36:00 PM EDT [facility] ([facility]) Name Value Range Interpretation Code Description Data Ariana rce(s) Supporting Document(s) Thyrotropin [Units/volume] in Serum or Plasma by Detec tion limit <= 0.005 mIU/L 0.815 0.358-3.740 [facility] ([facility], ) ID Date Data Source [id number] 11/13/2019 03:36:00 PM EDT [facility] ([facility]) Name Value Range Interpretation Code Description Data Ariana rce(s) Supporting Document(s) Ethanol [Presence] in Serum or Plasma Laboratory test result 0.000-0. 010 [facility] ([facility]) ID Date Data Source [id number] 11/13/2019 03:36:00 PM EDT [facility] ([facility]) Name Value Range Interpretation Code Description Data Ariana rce(s) Supporting Document(s) Troponin I.cardiac [Mass/volume] in Serum or Plasma Laboratory test result [facility] ([facility]) ID Date Data Source [id number] 11/13/2019 03:36:00 PM EDT [facility] ([facility], ) Name Value Range Interpretation Code Description Data Ariana rce(s) Supporting Document(s) Magnesium [Mass/volume] in Serum or Plasma 2.0 1.8-2.4 [facility] ([facility]) ID Date Data Source [id number] 11/13/2019 03:36:00 PM EDT [facility] ([facility]) Name Value Range Interpretation Code Description Data Ariana rce(s) Supporting Document(s) Creatine kinase.MB/Creatine kinase.total [Pure catalytic fraction] in Serum or Plasma by calculation 1.22 [facility] ([facility]) ID Date Data Source [id number] 11/13/2019 03:36:00 PM EDT [facility] ([facility]) Name Value Range Interpretation Code Description Data Ariana rce(s) Supporting Document(s) Creatine kinase.MB [Mass/volume] in Serum or Plasma Laboratory test result [facility] ([facility]) ID Date Data Source [id number] 11/13/2019 03:36:00 PM EDT [facility] ([facility]) Name Value Range Interpretation Code Description Data Ariana rce(s) Supporting Document(s) Creatine kinase [Enzymatic activity/volume] in Serum or Plasma 82 26-192 [facility] ([facility]) ID Date Data Source [id number] 11/13/2019 03:36:00 PM EDT [facility] ([facility]) Name Value Range Interpretation Code Description Data Ariana rce(s) Supporting Document(s) Calcium [Moles/volume] in Serum or Plasma 9.1 8.5-10.1 [facility] ([facility], ) ID Date Data Source [id number] 11/13/2019 03:36:00 PM EDT [facility] ([facility]) Name Value Range Interpretation Code Description Data Ariana rce(s) Supporting Document(s) Anion gap 3 in Serum or Plasma 8 8-16 [facility] ([facility], ) ID Date Data Source [id number] 11/13/2019 03:36:00 PM EDT [facility] ([facility]) Name Value Range Interpretation Code Description Data Ariana rce(s) Supporting Document(s) Carbon dioxide, total [Moles/volume] in Serum or Plasma 24 21 -32 [facility] ([facility]) ID Date Data Source [id number] 11/13/2019 03:36:00 PM EDT [facility] ([facility]) Name Value Range Interpretation Code Description Data Ariana rce(s) Supporting Document(s) Chloride [Moles/volume] in Serum or Plasma 106 98-107 [facility] ([facility]) ID Date Data Source [id number] 11/13/2019 03:36:00 PM EDT [facility] ([facility]) Name Value Range Interpretation Code Description Data Ariana rce(s) Supporting Document(s) Potassium [Moles/volume] in Serum or Plasma 3.5 3.5-5.1 [facility] ([facility]) ID Date Data Source [id number] 11/13/2019 03:36:00 PM EDT [facility] ([facility]) Name Value Range Interpretation Code Description Data Ariana rce(s) Supporting Document(s) Sodium [Moles/volume] in Serum or Plasma 138 136-145 [facility] ([facility]) ID Date Data Source [id number] 11/13/2019 03:36:00 PM EDT [facility] ([facility]) Name Value Range Interpretation Code Description Data Ariana rce(s) Supporting Document(s) Glomerular filtration rate/1.73 sq M.pre dicted [Volume Rate/Area] in Serum or Plasma by Creatinine-based formula (MDRD) Laboratory test result [facility] ([facility]) ID Date Data Source [id number] 11/13/2019 03:36:00 PM EDT [facility] ([facility]) Name Value Range Interpretation Code Description Data Ariana rce(s) Supporting Document(s) Creatinine [Mass/volume] in Serum or Plasma 0.46 0.55-1.30 [facility] ([facility]) ID Date Data Source [id number] 11/13/2019 03:36:00 PM EDT [facility] ([facility]) Name Value Range Interpretation Code Description Data Ariana rce(s) Supporting Document(s) Urea nitrogen [Mass/volume] in Serum or Plasma 12 7-18 [facility] ([facility]) ID Date Data Source [id number] 11/13/2019 03:36:00 PM EDT [facility] ([facility]) Name Value Range Interpretation Code Description Data Ariana rce(s) Supporting Document(s) Glucose [Mass/volume] in Serum or Plasma 99 70-100 [facility] ([facility], ) ID Date Data Source [id number] 11/13/2019 03:36:00 PM EDT [facility] ([facility]) Name Value Range Interpretation Code Description Data Ariana rce(s) Supporting Document(s) aPTT in Blood by Coagulation assay 30.1 25.0-38.4 [facility] ([facility]) ID Date Data Source [id number] 11/13/2019 03:36:00 PM EDT [facility] ([facility]) Name Value Range Interpretation Code Description Data Ariana rce(s) Supporting Document(s) Basophils [#/volume] in Blood by Automated count 0.0 0.0-0.2 [facility] ([facility]) ID Date Data Source [id number] 11/10/2019 05:11:00 PM EDT [facility] 1 OrderSheet [facility] Emergency Department [address] [place] [address] Phone #: ext- [phone] 11/10/2019 17:05 Patient: JACIEL RINCON Sex: F : 1995 Age: 24yWEIGHT:79.3 kg HEIGHT:62 inches BMI:32.0ALLERGIES: No Known Drug AllergyCHIEF COMPLAINT: syncope, [id number]: SyncopeLAB ORDERSOrder Description Priority Entered Acknowledged InitialedUrinalysis (Clean STAT 17:11/10/2019 18:58 Jean Stein RN Physician;Lipase STAT 17:11/10/2019 17:29 Donnie Stein RN Physician;CMP STAT 17:27 11/10/2019 17:29 Donnie Stein RN Physician;CBC w Diff STAT 17:11/10/2019 17:29 Donnie Stein RN Physician;HCG Serum Qual STAT 17:27 11/10/2019 17:29 Donnie Stein RN Physician;Troponin-T STAT 17:27 11/10/2019 17:29 Donnie Stein RN Physician;DIAGNOSTIC STUDY ORDERSOrder Description Priority Entered Acknowledged InitialedCT Head W/O Cont STAT 17:27 11/10/2019 17:29 Donnie(Oxygen?(No)) Noah Stein RN Physician; Reason for Study: SyncopeMEDICATION/IV/DRIP/FLUID ORDERSOrder Description Priority Entered Acknowledged InitialedNS IV : Bolus 1000 17:27 11/10/2019 17:54 TerrymL, then 125 mL/hr Noah Stein RN(can be titrated per Physician; 2 OrderSheet [facility] Emergency Department [address] [place] [address] Phone #: ext- [phone] 11/10/2019 17:05 --- Patient: JACIEL RINCON Sex: F : 1995 Age: 24yadditionalphysicianinstruction)GENERAL ORDERSOrder Description Priority Entered Acknowledged InitialedEKG 17:27 11/10/2019 17:45 Fiona Alvarenga laboratory operations coordinatorCornell Mcbride ER Physician; [id number] Monitor 17:27 11/10/2019 17:45 Fiona(continuous) Noah Alvarenga laboratory operations coordinatorCornell ER Physician; [id number] oximeter 17:27 11/10/2019 17:29 Donnie(Spot Check) Noah Stein RN Physician;Saline Lock 17:11/10/2019 17:29 Donnie Stein RN Physician;[Electronically signed by Donnie Stein RN (19:13 11/10/2019)][Electronically signed by Noah Alvarenga Physician (19:26 11/10/2019)][Electronically locked by Donnie Stein RN (19:13 11/10/2019)] Name Value Range Interpretation Code Description Data Ariana rce(s) Supporting Document(s) ID Date Data Source [id number] 11/10/2019 05:11:00 PM EDT [facility] 1 Medication Reconciliation Report [facility] Emergency Department [address] [place] [address] Phone #: ext- [phone] 11/10/2019 17:05 Patient: JACIEL RINCON Sex: F : 1995 Age: 24yWeight: 79.3 kgHeight/Length: 62 in.BMI: 32.0ALLERGIES: No Known Drug AllergyThe patient's Home Medications are listed below:NONE.The source(s) of the original Home Medication information:Not obtained.The following Medications were given to the patient in the Emergency Department:NS [IV] IV Fluids bolus 1000 mL over 1 hour(s), then 125 mL/hr, administered: 11/10/2019 5:44:00 PMThe following Medications were prescribed to the patient:None. Name Value Range Interpretation Code Description Data Ariana rce(s) Supporting Document(s) ID Date Data Source [id number] 11/10/2019 05:11:00 PM EDT [facility] 1 Medication Administration Record [facility] Emergency Department [address] [place] [address] Phone #: [phone]- [phone] 11/10/2019 17:05 Patient: JACIEL RINCON Sex: F : 1995 Age: 24yWeight: 79.3 kgHeight/Length: 62 inBMI: 32ALLERGIES: No Known Drug Allergy Date/Time Medication Administered Medication OrderedStart NS [IV] NS IV : Bolus 1000 mL, then 09580:44 11/10/2019 Dose: IV Fluids mL/hr (can be titrated Marcelo Stein RN Rate: 125 mL/hr over 5 hour(s) additional physician instruction)---- Bolus: 1000 mL over 1 hour(s)Stop Dispensed: 1000 mL bag18:59 11/10/2019 Site: #1 left Rayray Stein RN Name Value Range Interpretation Code Description Data Ariana rce(s) Supporting Document(s) ID Date Data Source [id number] 11/10/2019 05:11:00 PM EDT [facility] 1 General Instructions [facility] Emergency Department [address] [place] [address] Phone #: ext- [phone] 11/10/2019 17:05 Patient: JACIEL RINCON Sex: F : 1995 Age: 24yPostural syncope of unknown cause.INSTRUCTIONSNo dietary restrictions. Drink plenty of fluids. No alcohol.(No new Rxs. at this time. Need primary MD referral for Cardiology and / or Neurology referrals.).Warnings: Further evaluation is necessary.GENERAL WARNINGS: Return or contact your physician immediately if your condition worsens orchanges unexpectedly, if not improving as expected, or if other problems arise.Follow- up:Follow up with a neurologist Dr. Johnson ([facility]) - if not better. Call for the next availableappointment. Reason for referral: evaluation, treatment and Syncope.Understanding of the discharge instructions verbalized by patient.Follow-up with: Som Salazar MD, Cardiology, , [address] [place] [address], [phone] Follow up if not better. Call for the next available appointment. Reason for referral: evaluation, treatmentand Syncope - Need ECHO / stress test / Holter. ADDITIONAL INFORMATIONFainting: Uncertain CauseFainting (syncope) is a temporary loss of consciousness, which is often associated with a loss ofpostural tone. There are other causes of fainting, too. It's also called passing out. It occurs whenblood flow to the brain is less than normal. Near-fainting (near-syncope) is very similar to fainting, butyou don't fully pass out.Common minor causes of fainting include: Sudden fear Pain Nausea 2 General Instructions [facility] Emergency Department [address] [place] [address] Phone #: ext- [phone] 11/10/2019 17:05 [id number] Sex[facility] F : 1995 Age: 24y Emotional stress OverexertionSuddenly standing up after sitting or lying for a long time can also cause fainting.More serious causes of fainting include: Very slow or very fast heartbeat (arrhythmia) Other types of heart disease, such as heart valve disease or coronary artery disease Dehydration Loss of blood Seizure Stroke Ruptured blood vessel in the brainTaking too much high blood pressure medicine can also cause low blood pressure and fainting.Your healthcare provider does not know the exact cause of your fainting. But the tests today did notshow any of the serious causes of fainting. Sometimes you may need more tests to find out if youhave a serious problem. That's why it's important to follow up with your provider as advised.Home careFollow these guidelines when caring for yourself at home: Rest today. You may go back to your normal activities when you are feeling back to normal. It is best to stay with someone who can check on you for the next 24 hours to watch for another episode of fainting. If you become lightheaded or dizzy, lie down right away and try to prop your feet above the level of your head. Or sit with your head between your knees. Because the provider doesn't know the exact cause of your fainting or near-fainting spell, it's possible for you to have another spell without warning. Because of this, don't drive a car or operate dangerous equipment. Don't take a bath alone. Use a shower instead. Don't swim alone until your healthcare provider says that you are no longer in danger of having another fainting spell.Follow-up careFollow up with your healthcare provider, or as advised. 3 General Instructions [facility] Emergency Department [address] [place] [address] Phone #: ext- [phone] 11/10/2019 17:05 Patient: JACIEL RINCON Sex: F : 1995 Age: 24yCall 911Call 911 if any of these occur: Another fainting spell that's not explained by the common causes listed above Pain in your chest, arm, neck, jaw, back, or abdomen Shortness of breath Severe headache or seizure Blood in vomit or stools (black or red color) Unexpected vaginal bleeding Your heart beats very rapidly, very slowly, or irregularly (palpitations) Weakness in an arm or leg or on one side of the face Difficulty speaking or seeing Extreme drowsiness, confusion, dizziness, or fainting [id number] [employer]. [address] [place] [address]. All rights reserved. This information is not intended as asubstitute for professional medical care. Always follow your healthcare professional's instructions. You have been given the following additional information: Syncope, Unk Cause(Electronically signed by Noah Alvarenga, Physician 11/10/2019 19:26) Name Value Range Interpretation Code Description Data Ariana rce(s) Supporting Document(s) ID Date Data Source [id number] 11/10/2019 05:11:00 PM EDT [facility] 1 Clinical Report - Nurses [facility] Emergency Department [address] [place] [address] Phone #: ext- [phone] 11/10/2019 17:05 Patient: JACIEL RINCON Sex: F : 1995 Age: 24yTRIAGEArrived by private vehicle. ( Pt woke up on floor while making bottle "unconscious for 1 hour, large knot onhead" h/o same in October, seen at [facility]).Acuity: LEVEL 3.Chief Complaint: SYNCOPE.SEPSIS SCREEN: SIRS Screen negative. --17:09 11/10/19 Harry Falk R.N.17:06 11/10/19. BP: 153/87. HR: 85. RR: 14. O2 saturation: 100%. Temp: 97.7 F. Pain level now 01/12.--17:09 11/10/19 Harry Falk R.N.Weight: 79.3 kg. Height/Length: 62 inches. BMI: 32. --17:08 11/10/19 Harry Falk R.N.MedicationsNone. --17:07 11/10/19 Harry Falk R.N.AllergiesNo Known Drug Allergy. --17:07 11/10/19 Harry Falk R.N.PROBLEMS:no known problems.ADDITIONAL SURGERIES:[place] teeth. --17:07 11/10/19 Harry Falk R.N.HistoryPAST MEDICAL HX: Uses depo injections.SOCIAL HX: Former smoker. No alcohol use or drug use. She was offered HIV testing but declined andhepatitis C testing but declined. She has not traveled outside the [place]Infectious disease exposure: No infectious disease exposure.SELF HARM ASSESSMENT: Self harm assessment was performed. The patient answered "no" to thequestion(s) "Have you recently felt down, depressed, or hopeless?", "Do you have thoughts of harming orkilling yourself?", "Do you have a plan for harming or killing yourself?", "Have you recently had thoughtsabout harming or killing others?", "Do you have any dangerous items in your possession?", "Have younoticed less interest or p martín in doing things?", "Are you here because you tried to hurt yourself?" and"Have you ever tried to hurt yourself before today?".ABUSE ASSESSMENT: Abuse assessment. Abuse denied. 2 Clinical Report - Nurses [facility] Emergency Department [address] [place] [address] Phone #: ext- [phone] 11/10/2019 17:05 Patient: JACIEL RINCON Sex: F : 1995 Age: 24y NUTRITIONAL RISK ASSESSMENT: The nutritional risk assessment revealed no deficiencies. FUNCTIONAL ASSESSMENT: Functional assessment: no impairments noted. LEARNING NEEDS ASSESSMENT: The learning needs assessment revealed no barriers. FALL RISK ASSESSMENT: Fall risk assessment completed. No risk factors identified. SKIN INTEGRITY ASSESSMENT: Skin integrity risk assessment completed. No skin integrity risk identified. --17:09 11/10/19 Harry Falk R.N. Int erventions Identification band on patient. To treatment room. --17:11/10/19 Harry Falk R.N.PHYSICAL [id number] 11/10/19. Ambulatory to room.GENERAL / NEURO / PSYCH: Oriented X 4. Alert. Speech within normal limits.HEENT: No facial asymmetry noted.RESPIRATORY: Breath sounds within normal limits. Respirations not labored.CVS: Capillary refill less than 2 seconds.GI / : Abdomen soft and nontender.SKIN: Skin is warm and dry. --17:18 11/10/19 Donnie Stein RN HEENT: Head: ecchymosis present in the left parietal area (behind left ear). --17:24 11/10/19 Donnie Stein RN.NURSING PROGRESS NOTESReassurance given to the patient. Call light placed in reach of patient. Bed placed in lowest position.--17:10 11/10/19 Harry Falk R.N. EKG time: (17:35 11/10/2019). EKG was performed by a tech and shown to the ED physician. Checked patient name and birthdate. Blood samples drawn by tech. ([id number]). --17:35 11/10/19 Donnie Stein RN 17:44 11/10/2019 Site #1 started via IV in the left antecubital space with an 20g angiocath; one attempt. --17:54 11/10/19 Donnie Stein RN 17:44 11/10/2019 Started bag #1 1000 mL IV Fluids NS; bolus of 1000 mL over 1 hour(s) then at 125 mL/hr over 5 hour(s) via site #1 via IV pump. Allergies verified and confirmed 5 rights. IV patency established. IV site checked: no pain, redness, or swelling. IV flushed thoroughly pre- and post- medication administration. Information reviewed with patient. --17:54 11/10/19 Donnie Stein RN Cardiac rhythm: normal sinus rhythm; (1265). Head of bed elevated 75 degrees. --17:54 11/10/19 Donnie Stein RN 3 Clinical Report - Nurses [facility] Emergency Department [address] [place] [address] Phone #: ext- [phone] 11/10/2019 17:05 Patient: JACIEL RINCON Sex: F : 1995 Age: 24y Patient transported to radiology by wheelchair with cardiology tech. --18:22 11/10/19 Kristy Diaz RBeto. Patient returned from radiology by wheelchair with cardiology tech. ([id number]). --18:44 11/10/19 Donnie Stein RN 18:59 11/10/2019 IV Fluids NS via IV site #1 Discontinued: bag #1 infused upon discharge. Total amount infused: 1000 mL. --18:59 11/10/19 Donnie Stein RN 17:48 11/10/19. BP: 124/88. MAP: 100. HR: 60. --18:59 11/10/19 Donnie Stein RN 18:00 11/10/19. BP: 136/97. MAP: 110. HR: 60. O2 saturation: 100% on room air. --19:00 11/10/19 Donnie Stein RN 18:45 11/10/19. BP: 134/98. MAP: 110. HR: 6. RR: 16. O2 saturation: 100% on room air. Temp: 97 F (oral). Pain level now: 0/10. --19:01 11/10/19 Donnie Stein RN.DISPOSITION / DISCHARGE Disposition: observation. Transported via stretcher. Report was given to a nurse. Report included information regarding patient's care and condition, vital signs and critical labs. Report included treatment information regarding medications; type and amount of IV fluids. Report was acknowledged. Bed obtained and ready (106). Patient's personal items include: cell phone; items were placed in belongings bag. --17:28 11/10/19 Harry Falk RCharlieN. Charted On Wrong Patient --19:09 11/10/19 Harry Falk R.N. 19:00 11/10/19. BP: 128/76. MAP: 93. HR: 72. RR: 17. O2 saturation: 100% on room air. Temp: 97.8 F (oral). Pain level now: 0/10. --19:12 11/10/19 Donnie Stein RN 19:05 11/10/19. Departure time: :11/10/2019. Condition at departure: unchanged. No learning barriers present. Discharge instructions provided and reviewed with the patient. Reviewed medication(s) (no changes). Reviewed referral to a neurologist and mechanical systems designer. Patient verbalized understanding. Written instructions provided in Bulgarian. The patient was discharged by the physician. She was discharged home. She left ambulatory and via private vehicle. Patient driving. --19:12 11/10/19 Donnie Stein RN 19:05 11/10/2019 Site #1 removed upon discharge. Catheter intact. Bandaid applied. --19:13 11/10/19 Donnie Stein RN.Locked/Released at 11/10/2019 19:13 by Donnie Stein RN 4 Clinical Report - Nurses [facility] Emergency Department [address] [place] [address] Phone #: ext- [phone] 11/10/2019 17:05 Patient: JACIEL RINCON Sex: F : 1995 Age: 24y Name Value Range Interpretation Code Description Data Ariana rce(s) Supporting Document(s) ID Date Data Source [id number] 11/10/2019 05:11:00 PM EDT [facility] 1 Clinical Report - Physicians/Mid Levels [facility] Emergency Department [address] [place] [address] Phone #: ext- [phone] 11/10/2019 17:05 Patient: JACIEL RINCON Sex: F : 1995 Age: 24y Time Seen: 17:03 11/10/2019. Arrived- By private vehicle. Historian- patient. Disposition decision: 18:55 11/10/2019.HISTORY OF PRESENT ILLNESS Chief Complaint: SINGLE SYNCOPAL EPISODE. This occurred today. The patient recovered at the scene. Event was not witnessed. No preceding symptoms of light- headedness, dim vision, chest pain, warmth or abdominal pain. The patient had no preceding symptoms. At time of event, she was standing. This did not occur when the patient was recumbent, after she had just stood up, during exertion or while the patient was sitting. Did not feel faint or lose pulse. She lost consciousness and collapsed. No seizure activity, incontinence or apnea noted. Had a single episode. Did not experience repeated episodes. The episode lasted more than 30 minutes but was not brief. Location of injuries- head. Injuries noted. Currently she feels normal. No weakness currently. No nausea currently. Currently has moderate headache. (No prior events. had similar episode last month and was evaluated at [facility] Similar symptoms previously. Patient has had similar symptoms once. Recent medical care: The patient was seen recently at another facility in the emergency department.REVIEW OF SYSTEMSNo headache, dizziness, weakness, chest pain or palpitations. No abdominal pain, vomiting, diarrhea,black stools or numbness. No bloody stools, fever, sore throat, difficulty breathing or difficulty withurination. No skin rash, enlarged lymph nodes, cough or joint pain.PAST HISTORYPast history not negative. See nurses notes. ( Syncope x 1 prior to today).SOCIAL HISTORYFormer smoker. No alcohol use or drug use. No recent travel.ADDITIONAL NOTESThe nursing notes have been reviewed with agreement regarding the chief complaint, HPI, ROS, PMH andpatient medications and allergies.PHYSICAL EXAMVital Signs: 11/10/2019 17:06 BP: 153/87. MAP: 109. HR: 85. RR: 14. O2 saturation: 100%. Temp: 97.7F. Have been reviewed and appear to be correct. Hypertensive. Heart rate normal. Respiratory ratenormal. Temperature normal. Oxygen saturation normal.Appearance: Alert. Anxi ous. Appears to be in pain. Patient in mild distress. In distress.Eyes: Pupils equal, round and reactive to light. No nystagmus. Extraocular movements normal. 2 Clinical Report - Physicians/Mid Levels [facility] Emergency Department [address] [place] [address] Phone #: ext- [phone] 11/10/2019 17:05 Patient: JACIEL RINCON Sex: F : 1995 Age: 24y ENT: ENT inspection not normal. TM's normal. Moist mucous membranes. Pharynx normal. (L parietal scalp contusion). Neck: Normal inspection. Neck supple. CVS: Normal heart rate. Heart sounds normal. Pulses normal. Respiratory: No respiratory distress. Painless inspiration. Breath sounds normal. Abdomen: Soft and nontender. No organomegaly. Back: Normal inspection. Skin: Skin warm and dry. Normal skin color. No rash. Normal skin turgor. Extremities: Extremities exhibit normal ROM. No lower extremity edema. Neuro: Alert. Oriented X 3. Mood/affect normal. Speech normal. Cranial nerves normal (as tested). No cerebellar findings. No motor deficit. No sensory deficit.LABS, X-RAYS, AND EKGLaboratory Tests: Laboratory tests have been ordered, with results reviewed and considered in themedical decision making process. Lipase: (NOAH: 11/10/2019 17:33) ( [facility] 11/10/2019 18:09) Final results Test Result Flag Units (Reference) LIPASE 18 U/L (13 - 60) CMP: (NOAH: 11/10/2019 17:33) ( TngRcvd 11/10/2019 18:09) Final results Test Result Flag Units (Reference) COMPREHENSIVE METABOLIC PANEL COMPREHENSIVE METABOLIC PANEL SODIUM 140 mEq/L (134 - 153) POTASSIUM 4.2 mEq/L (3.6 - 5.0) CHLORIDE 103 mEq/L (98 - 107) CO2 25 MEQ/L (22 - 30) GLUCOSE 87 MG/DL (65 - 110) BUN 11 MG/DL (7 - 21) CREATININE 0.4 L MG/DL (0.7 - 1.5) BUN/CREAT 28 H (8 - 27) TOTAL PROTEIN 7.1 G/DL (6.3 - 8.2) ALBUMIN 4.8 G/DL (3.9 - 5.0) GLOBULIN 2.3 L GM/DL (2.4 - 3.2) A/G RATIO 2.1 H (0.8 - 2.0) CALCIUM 9.3 MG/DL (8.4 - 10.2) TOTAL BILI <0.7 MG/DL (0.2 - 1.3) ALKALINE PHOS 93 U/L (38 - 126) SGOT/AST 14 U/L (5 - 40) SGPT/ALT 8 U/L (7 - 56) ANION GAP 12.0 mmol/L (8.0 - 16.0) AGE 24 yrs NON-AA GFR >60 mL/min AFR AMER GFR >60 mL/min Male GFR Interprentation 20-49 yrs >60 mL/min Normal 50- 59 yrs >56 mL/min Normal 60-69 yrs >49 mL/min Normal 70-79yrs >42 mL/min Normal 80 and above >35 mL/min Normal Female GFR Interpretation 20-39 yrs >60 mL/min Normal 40-49 yrs >58 mL/min Normal 50-59 yrs >51 mL/min Normal 60-69 yrs >45 mL/min Normal 70-79 yrs >39 mL/min Normal 80 and above >32 mL/min Normal CBC w Diff: (NOAH: 11/10/2019 17:33) ( MsgRcvd 11/10/2019 17:44) Final results 3 Clinical Report - Physicians/Mid [facility] Emergency Department [address] [place] [address] Phone #: ext- [phone] 11/10/2019 17:05 Patient: JACIEL RINCON Sex: F : 1995 Age: 24y Test Result Flag Units (Reference) CBC W/AUTOMATED DIFF COMPLETE BLOOD COUNT WBC 9.5 10/uL (4.2 - 11.0) RBC 4.76 10/uL (4.20 - 5.40) HEMOGLOBIN 13.8 g/dL (12.0 - 16.0) HEMATOCRIT 41.6 % (37.0 - 47.0) MCV 87.4 fL (81.0 - 101) MCH 29.0 pg (27.0 - 34.0) MCHC 33.2 g/dL (31.0 - 36.0) RDW 13.0 % (11.5 - 14.5) PLATELETS 291 10/uL (150 - 450) MPV 9.2 fL (7.4 - 10.4) NEUT 57.2 % (37.0 - 80.0) LYMPH 33.4 % (25.0 - 40.0) MONO 7.5 % (3.0 - 8.0) EOS 0.8 % (0.0 - 7.0) BASO 0.4 % (0.0 - 2.5) %IG 0.7 H % (0.0 - 0.0) %NRBC 0.0 % (0.0 - 0.0) #NEUT 5.42 10/uL (2.00 - 6.90) #LYMPH 3.17 10/uL (0.60 - 3.40) #MONO 0.71 10/uL (0.00 - 0.90) #EOS 0.08 10/uL (0.00 - 0.70) #BASO 0.04 10/uL (0.00 - 0.20) #IG 0.07 10/uL (0.00 - 0.10) #NRBC 0.00 10/uL (0.00 - 0.00) MANUAL DIFF NOT INDICATED RBC MORPH NOT INDICATEDBeta-HCG, Qual Serum: (NOAH: 11/10/2019 17:33) ( [facility] 11/10/2019 17:58) Final results Test Result Flag Units (Reference) HCG SERUM QUAL NEGATIVE (NORMAL: NEGAT HCG SERUM QL REENTER NEGATIVE (NORMAL: NEGAT { KIT LOT # [id number] ){ KIT EXP DATE05/05/21 ){ PROCEDURAL CONTROL VALID)Troponin-T: (NOAH: 11/10/2019 17:33) ( [facility] 11/10/2019 18:03) Final results Test Result Flag Units (Reference) TROPONIN T 0.01 NG/ML (0.00 - 0.10) TROPONIN T0.1 ng/ml Recommended as the clinical threshold value forTroponin T.CT Head W/O Cont: (NOAH: 11/10/2019 17:27) ( MsgRcvd 11/10/2019 19:24) In ProgressCT HEAD W/O CONTRASTReason(s): SyncopeTRANSPORTATION: WC IV? O2? Oxygen?(No) Room: ED: HCG Pending.Note - Tests: (EKG - NSR with sinus arrhythmiaCT head - NAD). 4 Clinical Report - Physicians/Mid Levels [facility] Emergency Department [address] [place] [address] Phone #: ext- [phone] 11/10/2019 17:05 Patient: JACIEL RINCON Sex: F : 1995 Age: 24yPROGRESS AND PROCEDURESCourse of Care: 18:51 Nov 10 2019. Patient is stable. Symptoms better. 18:51 Nov 10 2019. Labs, EKG and CT head are all unremarkable. I will recommend evaluation by a mechanical systems designer (Dr. Salazar) and a possible Holter Monitor placement. I will also recommend seeing a Neurologist for an EEG. Follow-up with primary MD for appropriate referrals. Disposition: Discharged home in good and improved condition (18:55 Nov 10 2019). Condition: good.CLINICAL IMPRESSION Postural syncope of unknown cause.INSTRUCTIONS No dietary restrictions. Drink plenty of fluids. No alcohol. (No new Rxs. at this time. Need primary MD referral for Cardiology and / or Neurology referrals.). Warnings: Further evaluation is necessary. GENERAL WARNINGS: Return or contact your physician immediately if your condition worsens or changes unexpectedly, if not improving as expected, or if other problems arise. Follow-up: Follow up with a neurologist Dr. Johnson ([facility]) - if not better. Call for the next available appointment. Reason for referral: evaluation, treatment and Syncope. Understanding of the discharge instructions verbalized by patient. Follow-up with: Som Salazar MD, Cardiology, , [address] [place] [address], , [place], [address] Follow up if not better. Call for the next available appointment. Reason for referral: evaluation, treatment and Syncope - Need ECHO / stress test / Holter.(Electronically signed by Noah Alvarenga, Physician 11/10/2019 19:26) Name Value Range Interpretation Code Description Data Ariana rce(s) Supporting Document(s) ID Date Data Source [id number] 11/10/2019 06:09:00 PM EDT [facility] Name Value Range Interpretation Code Description Data [facility] rce(s) Supporting Document(s) COMPREHENSIVE METABOLIC PANEL [facility] COMPREHENSIVE METABOLIC PANEL Sodium [Moles/volume] in Serum or Plasma 140 mEq/L 134 - 153 [facility] Potassium [Moles/volume] in Serum or Plasma 4.2 mEq/L 3.6 - 5.0 [facility] Chloride [Moles/volume] in Serum or Plasma 103 mEq/L 98 - 107 [facility] Carbon dioxide, total [Moles/volume] in Serum or Plasma 25 MEQ/L 22 - 30 [facility] Glucose [Mass/volume] in Serum or Plasma 87 MG/DL 65 - 110 [facility] BUN 11 MG/DL 7 - 21 [facility] Creatinine [Mass/volume] in Serum or Plasma 0.4 MG/DL 0.7 - 1.5 L [facility] BUN/CREAT 28 8 - 27 H [facility] al Protein [Mass/volume] in Serum or Plasma 7.1 G/DL 6.3 - 8.2 [facility] Albumin [Mass/volume] in Serum or Plasma 4.8 G/DL 3.9 - 5.0 [facility] Globulin [Mass/volume] in Serum by calculation 2.3 GM/DL 2.4 - 3.2 L [facility] A/G RATIO 2.1 0.8 - 2.0 H [facility] Calcium [Mass/volume] in Serum or Plasma 9.3 MG/DL 8.4 - 10.2 [facility] Bilirubin.total [Mass/volume] in Serum or Plasma <0.7 MG/DL 0.2 - 1.3 [facility] Alkaline phosphatase [Enzymatic activity/volume] in Serum or Plasma 93 U/L 38 - 126 [facility] Aspartate aminotransferase [Enzymatic activity/volume] in Serum or Plasma 14 U/L 5 - 40 [facility] Alanine aminotransferase [Enzymatic activity/volume] in Seru m or Plasma 8 U/L 7 - 56 [facility] Anion gap 3 in Serum or Plasma 12.0 mmol/L 8.0 - 16.0 [facility] AGE 24 yrs [facility] Hospit al NON-AA GFR >60 mL/min [facility] Hosp ital AFR AMER GFR >60 mL/min [facility] spital Male GFR In terprentation 20-49 yrs >60 mL/min Normal 50-59 yrs >56 mL/min Normal 60-69 yrs >49 mL/min Normal 70-79yrs >42 mL/min Normal 80 and above >35 mL/min Normal Female GFR Interpretation 20-39 yrs >60 mL/min Normal 40-49 yrs >58 mL/min Normal 50-59 yrs >51 mL/min Normal 60-69 yrs >45 mL/min Normal 70-79 yrs >39 mL/min Normal 80 and above >32 mL/min Normal ID Date Data Source [id number] 11/10/2019 06:09:00 PM EDT [facility] Name Value Range Interpretation Code Description Data Ariana rce(s) Supporting Document(s) Lipase [Enzymatic activity/volume] in Serum or Plasma 18 U/L 13 - 60 [facility] ID Date Data Source [id number] 11/10/2019 06:03:00 PM EDT [facility] Name Value Range Interpretation Code Description Data Ariana rce(s) Supporting Document(s) TROPONIN T 0.01 NG/ML 0.00 - 0.10 [facility] Ho spital TROPONIN T0.1 ng/ml Recommended as the c linical threshold value forTroponin T. ID Date Data Source [id number] 11/10/2019 05:58:00 PM EDT [facility] Name Value Range Interpretation Code Description Data Ariana rce(s) Supporting Document(s) HCG SERUM QUAL NEGATIVE NORMAL: NEGATIVE [facility] HCG SERUM QL REENTER NEGATIVE NORMAL: NEGATIVE [facility] { KIT LOT # [id number] ){ KIT EXP DATE 05/05/21 ){ PROCEDURAL CONTROL VALID ) ID Date Data Source [id number] 11/10/2019 05:44:00 PM EDT [facility] Name Value Range Interpretation Code Description Data Ariana rce(s) Supporting Document(s) CBC W/AUTOMATED DIFF [facility] COMPLETE BLOOD COUNT Leukocytes [#/volume] in Blood by Automated count 9.5 10^3/uL 4.2 - 1 1.0 [facility] Erythrocytes [#/volume] in Blood by Automated count 4.76 10^6/uL 4. 20 - 5.40 [facility] Hemoglobin [Mass/volume] in Blood 13.8 g/dL 12.0 - 16.0 [facility] Hematocrit [Volume Fraction] of Blood by Automated count 41.6 % 3 7.0 - 47.0 [facility] Erythrocyte mean corpuscular volume [Entitic volume] by Auto mated count 87.4 fL 81.0 - 101 [facility] Erythrocyte mean corpuscular hemoglobin [Entitic mass] by Automated count 29.0 pg 27.0 - 34.0 [facility] Erythrocyte mean corpuscular hemoglobin concentration [Mass/volume] by Automated count 33.2 g/dL 31.0 - 36.0 [facility] Erythrocyte distribution width [Ratio] by Automated count 13.0 % 11.5 - 14.5 [facility] Platelets [#/volume] in Blood by Automated count 291 10^3/uL 150 - 45 0 [facility] Platelet mean volume [Entitic volume] in Blood by Automated count 9.2 fL 7.4 - 10.4 [facility] Neutrophils/100 leukocytes in Blood by Automated count 57.2 % 37. 0 - 80.0 [facility] Lymphocytes/100 leukocytes in Blood by Manual count 33.4 % 25.0 - 40.0 [facility] Monocytes/100 leukocytes in Blood by Automated count 7.5 % 3.0 - 8.0 [facility] Eosinophils/100 leukocytes in Blood by Automated count 0.8 % 0.0 - 7.0 [facility] Basophils/100 leukocytes in Blood by Automated count 0.4 % 0.0 - 2.5 [facility] %IG 0.7 % 0.0 - 0.[address] [facility] %NRBC 0.0 % 0.0 - 0.0 [facility] al Neutrophils [#/volume] in Blood by Automated count 5.42 10^3/uL 2.00 - 6.90 [facility] Lymphocytes [#/volume] in Blood by Automated count 3.17 10^3/uL 0.60 - 3.40 [facility] Monocytes [#/volume] in Blood by Automated count 0.71 10^3/uL 0.00 - 0.90 [facility] Eosinophils [#/volume] in Blood by Automated count 0.08 10^3/uL 0.00 - 0.70 [facility] Basophils [#/volume] in Blood by Automated count 0.04 10^3/uL 0.00 - 0.20 [facility] #IG 0.07 10^3/uL 0.00 - 0.10 [facility] H ospital #NRBC 0.00 10^3/uL 0.00 - 0.00 [facility] MANUAL DIFF NOT INDICATED [facility] RBC MORPH NOT INDICATED [facility] spital ID Date Data Source [id number] 10/21/2019 12:44:00 PM EDT [facility] ([facility], ) Name Value Range Interpretation Code Description Data Ariana rce(s) Supporting Document(s) Laboratory test finding (navigational concept) Laboratory test result [facility]) ID Date Data Source [id number] 10/21/2019 12:06:00 PM EDT [facility] ([facility]) Name Value Range Interpretation Code Description Data Ariana rce(s) Supporting Document(s) Glucose [Mass/volume] in Capillary blood by Glucometer 145 70- 105 [facility] ([facility]) Procedure Social History Code Duration Value Status Description Data Source(s ) Smoking 05/17/2020 12:00:00 AM EST Patient has never smoked co mpleted Patient has never smoked [facility] ([facility]) Vital Signs ID Date Data Source UNK Name Value Range Interpretation Code Description Data Source(s) Body mass index (BMI) [Ratio] 31.5 kg/m2 31.5 k g/m2 [facility] Body height 62 [in_i] 62 [in_i] [facility] ([facility], [facility]) 5'2" Body weight 172.00 [lb_av] 172.00 [lb_av] MEDEN T ([facility], [facility]) Body temperature 99.0 [degF] 99.0 [degF] [facility] ([facility], [facility]) Oxygen saturation in Arterial blood by Pulse oximetry 97 % 97 % [facility] ([facility], [facility]) Respiratory rate 18 /min 18 /min [facility] ( [facility], [facility]) Heart rate 83 /min 83 /min [facility] ([facility], [facility]) Diastolic blood pressure 96 mm[Hg] 96 mm[Hg] [facility] ([facility], [facility]) Systolic blood pressure 138 mm[Hg] 138 mm[Hg] M EDENT ([facility], [facility]) Body mass index (BMI) [Ratio] 31.0 kg/m2 31.0 k g/m2 [facility] ([facility], ) Body weight 172.00 [lb_av] 172.00 [lb_av] MEDEN T ([facility], ) Body height 62.5 [in_i] 62.5 [in_i] MEDENT ([facility], ) 5'2.50" Respiratory rate 12 /min 12 /min [facility] ( [facility], ) Body mass index (BMI) [Ratio] 31.0 kg/m2 31.0 k g/m2 [facility] ([facility], ) Body weight 171.50 [lb_av] 171.50 [lb_av] MEDEN T ([facility], )
--- OUTSIDE RECORDS SUMMARY | 2020-07-17 08:32 | CCD | Continuity of Care Document ---
Author Author Zuleika HARDWICK [place] Organization Unknown Address [address] [place] [address] Phone [phone] Care Team Providers Care Time Clerk Name Role Phone Hunter Walton MD AUTM Unavailable [facility] AUTM [phone] Problems Description No Information Available Social History Type Date Description Comments Sex Unknown ETOH Use Occasionally consumes alcohol Tobacco Use Start: Unknown Patient has never smoked Recreational Drug Use Regularly uses Marijuana Smoking Status Reviewed: 05/17/20 Patient has never smoked Allergies, Adverse Reactions, Alerts Active Allergies Reaction Severity Comments Date NKDA 05/17/2020 Latex 05/17/2020 Medications Active Medications SIG Qnty Indications Ordering Provide r Date Dicyclomine HCL 10mg Capsules take one tablet by mouth every 8 hours for one week. 21caps R19.7 Jamar Ron JR., M.D. 05/17/2020 History Medications No Active Medications Unknown 06/2020 - 05/17/2020 Immunizations Description No Information Available Vital Signs Date Vital Result Comment 05/17/2020 10:00am BP Systolic 138 mmHg BP Diastolic 96 mmHg Heart Rate 83 /min Respiratory Rate 18 /min O2 % BldC Oximetry 97 % Body Temperature 99.0 F Weight 172.00 lb Height 62 inches 5'2" BMI (Body Mass Index) 31.5 kg/m2 Pain Level 8 Results Test Acquired Date Facility Test Result H/L Range Note CBC With Differential 05/17/2020 [facility] [address] [place] [address] [phone] White Blood Count 7.6 10 4.0-10.0 1 Red Blood Count 4.86 10 Normal 4.00-5.40 Hemoglobin 14.6 g/dL Normal 12.0-15.5 Hematocrit 44.5 % Normal 36.0-47.0 Mean Corpuscular Volume 91.6 fl Normal 80.0-96.0 Mean Corpuscular Hemoglobin 30.0 pg Normal 27.0-33.0 Mean Corpuscular HGB Conc 32.8 g/dL Normal 32.0-36.5 Red Cell Distribution Width 12.3 % Normal 11.5-14.5 Platelet Count, Automated 303 10 Normal 150-450 Neutrophils % 55.9 % Normal 36.0-66.0 Lymph % 31.8 % Normal 24.0-44.0 [place] % 10.4 % High 0.0-5.0 Eos % 1.0 % Normal 0.0-3.0 Baso % 0.4 % Normal 0.0-1.0 Immature Granulocyte % 0.5 % Normal 0-3.0 Nucleated Red Blood Cell % 0.0 % Normal 0-0 Neutrophils # 4.3 10 Normal 1.5-8.5 Lymph # 2.4 10 Normal 1.5-5.0 [place] # 0.8 10 Normal 0.0-0.8 Eos # 0.1 10 Normal 0.0-0.5 Baso # 0.0 10 Normal 0.0-0.2 Comprehensive Metabolic Profil 05/17/[address] [address] [phone] Glucose, Fasting 84 mg/dL Normal 70-100 Blood Urea Nitrogen 8 mg/dL Normal 7-18 Creatinine For GFR 0.56 mg/dL Normal 0.55-1.30 Glomerular Filtration Rate > 60.0 Normal >60 2 Sodium Level 138 mEq/L Normal 136-145 Potassium Serum 4.6 mEq/L Normal 3.5-5.1 Chloride Level 106 mEq/L Normal 98-107 Carbon Dioxide Level 25 mEq/L Normal 21-32 Anion Gap 7 mEq/L Low 8-16 Calcium Level 9.3 mg/dL Normal 8.5-10.1 Ast/Sgot 7 U/L Normal 7-37 Alt/SGPT 13 U/L Normal 12-78 Alkaline Phosphatase 99 U/L Normal 45-117 Bilirubin,Total 0.4 mg/dL Normal 0.2-1.0 Total Protein 7.5 GM/DL Normal 6.4-8.2 Albumin 4.4 GM/DL Normal 3.2-5.2 Albumin/Globulin Ratio 1.4 Normal 1.2-2.2 FT4&TSH Panel 05/17/2020 [facility] nter [address] [place], [place] [id number] [phone] Thyroid Stimulating Hormone 0.762 uIU/ML Normal 0. 358-3.740 Free T4 1.31 ng/dL Normal 0.76-1.46 Laboratory test finding 05/17/2020 [facility] [address] [place] [address] [phone] Lipase 67 U/L Low 73-393 3 Amylase 41 U/L Normal 25-115 4 Laboratory test finding 05/17/2020 [facility] [address] [place] [phone] C Reactive Protein Quantitativ 0.30 mg/dL Normal 0 .00-0.30 5 Immunoglobulin A 102.0 mg/dL Normal 70-400 6 Tissue Transglutaminase IgA <2 U/mL Normal 0-3 7 1 Patient notified with result s today 2 Units are mL/min/1.73 m2 Chronic Kidney Disease Staging per NKF: Stage I & II GFR >=60 Normal to Mildly Decreased Stage III GFR 30-59 Moderately Decreased Stage IV GFR 15-29 Severely Decreased Stage V GFR <15 Very Little GFR Left ESRD GFR <15 on 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 Tissue Transglutaminase (tTG) has been identified as the endomysial antigen. Studies have demonstr- ated that endomysial IgA antibodies have over 99% specificity for gluten sensitive enteropathy. Performed at: RN - [facility] [address] [id number] Groundman/Lineman: Mary Reyes MD, Phone: [phone] Procedures Description No Information Available Medical Devices Description No Information Available Encounters Type Date Location Provider Dx Diagnosis Office Visit 05/17/2020 9:30a Main Office FREDDIE Baker R19 .7 Diarrhea, unspecified R10.30 Lower abdominal pain, unspec ified Assessments Date Code Description Provider 05/17/2020 R19.7 Diarrhea, unspecified FREDDIE Baker 05/17/2020 R10.30 Lower abdominal pain, unspecifie d FREDDIE Baker Plan of Treatment No Information Available Functional Status Description No Information Available Mental Status Description No Information Available Referrals Refer to Reason for Referral Status Appt Date Rylan Hardwick PA Created [facility] [address] [place] [phone]
[2020-07-17] MEDS ORDERED: PRENTAB9 PO (08:36)
[2020-07-17] MEDS ORDERED: NS 1,000 ML IV ONE (09:00)
[2020-07-17 09:26] LABS: BASO % 0.3 % (0.0-1.0); EOS # 0.1 10^3/uL (0.0-0.5); EOS % 0.8 % (0.0-3.0); HEMATOCRIT 42.1 % (36.0-47.0); LYMPH % 29.5 % (24.0-44.0); MEAN CORPUSCULAR HEMOGLOBIN 29.9 pg (27.0-33.0); MEAN CORPUSCULAR HGB CONC 33.3 g/dl (32.0-36.5); MEAN CORPUSCULAR VOLUME 89.8 fl (80.0-96.0); MONO # 0.5 10^3/uL (0.0-0.8); MONO % 7.1 % (0.0-5.0); NEUTROPHILS # 4.1 10^3/uL (1.5-8.5); NEUTROPHILS % 61.8 % (36.0-66.0); PLATELET COUNT, AUTOMATED 251 10^3/uL (150-450); RED BLOOD COUNT 4.69 10^6/uL (4.00-5.40); WHITE BLOOD COUNT 6.6 10^3/uL (4.0-10.0)
--- OUTSIDE RECORDS SUMMARY | 2020-07-17 09:28 | CCD ---
Author Author [facility] Organization [facility] Address Unknown Phone Unavailable Care Team Providers Care Accounts Clerk Name Role Phone Angel ALVARENGA MD Unavailable Unavailable VENERUS, Angel MAS MD Unavailable Unavailable VENERUSAngel MD Unavailable Unavailable VENERUS, Angel MAS MD Unavailable Unavailable VENERUSAngel MD Unavailable Unavailable VENERUS, Angel MAS MD Unavailable Unavailable VENERUS, Angel MAS MD Unavailable Unavailable VENERUS, Angel MAS MD Unavailable Unavailable VENERUSAngel MD Unavailable Unavailable LETTIERE, Sebastián FRAZIER Unavailable Unavailable LETTIERE, Sebastián FRAZIER Unavailable Unavailable LETTIERE, Sebastián FRAZIER Unavailable Unavailable LETTIERE, Sebastián FRAZIER Unavailable Unavailable LETTIERE, Sebastián FRAZIER Unavailable Unavailable LETTIERE, Sebastián FRAZIER Unavailable Unavailable LETTIERE, Sebastián FRAZIER Unavailable Unavailable LETTIERE, Sebastián VALDES PA Unavailable Unavailable LETTIERE, Sebastián VALDES PA Unavailable Unavailable LETTIERE, Sebastián VALDES PA Unavailable Unavailable LETTIERE, Sebastián VALDES PA Unavailable Unavailable LETTIERE, Sebastián VALDES PA Unavailable Unavailable LETTIERE, Sebastián VALDES PA Unavailable Unavailable LETTIERE, Sebastián VALDES PA Unavailable Unavailable LETTIERE, Sebastián VALDES PA Unavailable Unavailable LETTIERE, Sebastián VALDES PA Unavailable Unavailable LETTIERE, Sebastián VALDES PA Unavailable Unavailable LETTIERE, Sebastián VALDES PA Unavailable Unavailable LETTIERE, Sebastián VALDES PA Unavailable Unavailable LETTIERE, Sebastián VALDES PA Unavailable Unavailable LETTIERE, A KEISHA PA [...] is protected by Article 27-F of the [facility] Public Health law. If you continue you may have access to information: Regarding HIV / AIDS; Provided by facilities licensed or operated by the [facility] Office of Mental Health; or Provided by the [facility] Office for People With Developmental Disabilities. If such information is present, then the following [facility] mandated warning applies: This information has been [...] law may result in a fine or chcf sentence or both. A general authorization for the release of medical or other information is NOT sufficient authorization for further disc losure. Allergies and Adverse Reactions Type Description Substance Reaction Status Data Source(s ) No Known Drug Allergies No Known Drug Allergies [facility] ENVIRONMENTAL LATEX LATEX [facility] Substance/Environmental Agent Allergy Substance/Environmenta l Agent Allergy Latex [facility] Encounters Encounter Providers Location Date Indications Data Source(s ) Outpatient ED-[facility] 05/29/2020 01:47:00 PM EST - 05/29/2020 01:48:00 PM EST LLQ ABD PAIN [facility] LLQ ABD PAIN Patient discharged. Outpatient Attender: KEISHA garnica 05/17/2020 08:30:00 AM EST [facility] ([facility]) Outpatient [facility] 12/13/2019 08:02:44 PM EDT [facility] Emergency Attender: NOAH ALVARENGA MD 11/09 05:11:00 PM EDT - 11/10/2019 07:05:[address] [facility] Patient discharged. Outpatient [facility] 08/03/2019 09:01:14 PM EST [facility] Outpatient [facility] 08/03/2019 12:05:01 PM EST [facility] Outpatient [facility] 08/03/2019 12:01:01 PM EST [facility] Medications Medication Brand Name Start Date Product Form Dose Route Admi nistrative Instructions Pharmacy Instructions Status Indications Reaction Description Data Source(s) No Active Medications 05/17/2020 12:00:00 AM EST completed [facility] ([facility]) Dicyclomine Hydrochloride 10 MG Oral Capsule Dicyclomine HCL 05/17/2020 12:00:00 AM EST ORAL active [facility] ([facility]) Alprazolam 0.5 MG Oral Tablet Alprazolam 12/12/2019 12:00:00 AM EDT ORAL active [facility] ([facility]) Ondansetron 4 MG Disintegrating Oral Tablet Ondansetron 10/21/2019 12:00:00 AM EDT completed [facility] ([facility]) Meclizine Hydrochloride 25 MG Oral Tablet Meclizine HCL 10/21/2019 12:00:00 AM EDT completed [facility] ([facility]) Insurance Providers Payer name Policy type / Coverage type Policy ID Covered green party ID Covered green party's relationship to suarez Policy Suarez Plan Information [facility] [employer] [id number] [facility] HUMANA - O/P [id number] 01 [id number] SELF PAY ONLY SP [facility] ACTIVE DUTY [id number] SP [id number] [facility] HUMANA - O/P [id number] 01 [id number] SELF PAY O [id number] S [id number] HUMANA [facility] REG O [id number] S [id number] ACTIVE DUTY [id number] SP [id number] [employer] TIA O [id number] S [id number] N REGIONAL CLAIMS LUIS -O/P [id number] Problems, Conditions, and Diagnoses Code Display Name Description Problem Type Effective Dates Data Source(s) 083962381 Syncope and collapse Syncope and collapse Problem 11/17/2019 12:00:00 AM EDT [facility] ([facility] L33252 Personal history of nicotine dependence Personal history of nicotine dependence Diagnosis 11/10/2019 05:11:[address] [facility] R55 Syncope and collapse Syncope and collapse Diagnosis 11/10/2019 05:11:[address] [facility] Surgeries/Procedures Procedure Description Date Indications Data Source(s) ELECTROENCEPHALOGRAM W/REC AWAKE&ASLEEP 01/09/2020 12: 00:00 AM EDT [facility] ([facility]) ELECTROENCEPHALOGRAM W/REC AWAKE&ASLEEP 01/09/2020 12: 00:00 AM EDT [facility] ([facility]) Results ID Date Data Source [id number] 05/31/2020 11:13:00 AM [facility] Imaging Services Department Imaging Report [address] [address] %(RAD)RES..mtdd.print.filter("line") Name: JACIEL RINCON : 1995 Age/Sex: 25F Ordering Provider: ALANNAH KINNEY MD Med Rec #: [id number] Reg Status: DEP REF Room #: Date of Service: 05/29/20 Report Number: [id number] cc:ALANNAH KINNEY MD; PCP None Send Report To: [id number] CT/CT Abdomen & Pelvis No Contras Reason [...] Date/Time: 05/29/20 1447 Transcribed Date/Time: 05/31/20 1113 Director Of Event Marketing: JAX Name Value Range Interpretation Code Description Data Ariana rce(s) Supporting Document(s) ID Date Data Source [id number] 05/17/2020 10:28:00 AM EST [facility] ([facility]) Name Value Range Interpretation Code Description Data Ariana rce(s) Supporting Document(s) C reactive protein [Mass/volume] in Serum or Plasma by High sensitivity method 0.30 mg/dL 0.00-0.30 [facility] ([facility]) Patient notified with results today IgA [Mass/volume] in Serum or Plasma 102.0 mg/dL 70-[facility] Patient notified with results today Tissue transglutaminase IgA Ab [Units/volume] in Serum Labor atory test result 0-[facility]) Patient notified with results today ID Date Data Source [id number] 05/17/2020 10:28:00 AM EST [facility] ([facility]) Name Value Range Interpretation Code Description Data Ariana rce(s) Supporting Document(s) Lipoprotein lipase [Enzymatic activity/volume] in Serum or Plasm a 67 U/L 73-393 [facility] Patient notified with results today Amylase [Enzymatic activity/volume] in Serum or Plasma 41 U/L 25- [address] [facility]) Patient notified with results today ID Date Data Source [id number] 05/17/2020 10:28:00 AM EST [facility] ([facility]) Name Value Range Interpretation Code Description Data Ariana rce(s) Supporting Document(s) Thyroid Stimulating Hormone 0.762 uIU/ML 0.358-3.740 [facility]) Patient notified with results today Free T4 1.31 ng/dL 0.76-1.46 [facility]) Patient notified with results today ID Date Data Source [id number] 05/17/2020 10:28:00 AM EST [facility] Name Value Range Interpretation Code Description Data Ariana rce(s) Supporting Document(s) Glucose, Fasting 84 mg/dL 70-[address] [facility]) Patient notified with results today Blood Urea Nitrogen 8 mg/dL 7-18 [facility] ([facility]) Patient notified with results today Creatinine For GFR 0.56 mg/dL 0.55-1.30 [facility]) Patient notified with results today Glomerular Filtration Rate Laboratory test result [facility]) Patient notified with results today Potassium Serum 4.6 meq/L 3.5-5.1 [facility] ([facility]) Patient notified with results today Sodium Level 138 meq/L 136-145 [facility] ([facility]) Patient notified with results today Chloride Level 106 meq/L 98-107 [facility] ([facility]) Patient notified with results today Carbon Dioxide Level 25 meq/L 21-32 [facility] ([facility]) Patient notified with results today Calcium Level 9.3 mg/dL 8.5-10.1 [facility] ([facility]) Patient notified with results today Anion Gap 7 meq/L 8-16 [facility] ([facility]) Patient notified with results today Ast/Sgot 7 U/L 7-37 [facility] ([facility]) Patient notified with results today Alt/SGPT 13 U/L 12-78 [facility] ([facility]) Patient notified with results today Alkaline Phosphatase 99 U/L 45-117 [facility] ([facility]) Patient notified with results today Total Protein 7.5 GM/DL 6.4-8.2 [facility] ([facility]) Patient notified with results today Bilirubin,Total 0.4 mg/dL 0.2-1.[facility]) Patient notified with results today Albumin 4.4 GM/DL 3.2-5.[address] [facility]) Patient notified with results today Albumin/Globulin Ratio 1.4 1.2-2.2 [facility] ([facility]) Patient notified with results today ID Date Data Source [id number] 05/17/2020 10:28:00 AM EST [facility] ([facility]) Name Value Range Interpretation Code Description Data Ariana rce(s) Supporting Document(s) White Blood Count 7.6 10 4.0-10.0 [facility] ([facility]) Patient notified with results today Red Blood Count 4.86 10 4.00-5.40 [facility] Patient notified with results today Hemoglobin 14.6 g/dL 12.0-15.5 [facility]) Patient notified with results today Mean Corpuscular Volume 91.6 fl 80.0-96.[facility] Patient notified with results today Hematocrit 44.5 % 36.0-47.[address] [facility]) Patient notified with results today Mean Corpuscular Hemoglobin 30.0 pg 27.0-33.[address] [facility]) Patient notified with results today Mean Corpuscular HGB Conc 32.8 g/dL 32.0-36.5 [facility]) Patient notified with results today Red Cell Distribution Width 12.3 % 11.5-14.[address] [facility]) Patient notified with results today Neutrophils % 55.9 % 36.0-66.0 [facility]) Patient notified with results today Platelet Count, Automated 303 10 150-450 [facility]) Patient notified with results today Bureau % 10.4 % 0.0-5.[address] [facility]) Patient notified with results today Lymph % 31.8 % 24.0-44.[address] [facility]) Patient notified with results today Eos % 1.0 % 0.0-3.0 [facility] ([facility]) Patient notified with results today Immature Granulocyte % 0.5 % 0-3.0 [facility] ([facility]) Patient notified with results today Baso % 0.4 % 0.0-1.[address] [facility]) Patient notified with results today Nucleated Red Blood Cell % 0.0 % 0-0 [facility] ([facility]) Patient notified with results today Neutrophils # 4.3 10 1.5-8.5 [facility]) Patient notified with results today Lymph # 2.4 10 1.5-5.0 [facility] ([facility]) Patient notified with results today Bureau # 0.8 10 0.0-0.8 [facility] ([facility]) Patient notified with results today Eos # 0.1 10 0.0-0.5 [facility] ([facility]) Patient notified with results today Baso # 0.0 10 0.0-0.2 [facility] ([facility]) Patient notified with results today ID Date Data Source [id number] 11/14/2019 01:37:00 [place] [address] RESPIRATORY CARE REPORT ==== ---------NAME------- NUMBER SEX AGE ADMIT DISC. XRAY# F/C ALBERTRUSSELL Quan [id number] F 24 11/10/19 11/10/19 [id number] SB4 E/R DATE OF : 1995 M/R# [id number] PH#: [phone] TR-08 LOCATION: EMERGENCY DEPT EKG 25943 COMPLE TE:11/11/19 01:18 T 63950 PHYSICIAN: LYLE MAGANA Name Value Range Interpretation Code Description Data Ariana rce(s) Supporting Document(s) ID Date Data Source [id number] 11/14/2019 10:28:00 [place] [address] PHONE: [phone] FAX: [phone] Name .................. : RINCONJESSICA Quan Acct Number.................. : [id number] ROOM. ................. : TR-08 MR Number ................... : [id number] Stay type ............. : E/R Discharge Date......... ... : 11/10/19 Admit Date ... ...... : 11/10/19 Admit Phys .................... : VENERUS BR Date of ....... : 1995 Family Phys ................... : UNKNOWN Phone .................. : [phone] Age ................................ : 24 Film# .................. .:[id number] Sex ................................. : F Unsigned transcriptions are preliminary reports and do not represent a medical or legal document CT HEAD W/O CONTRAST [id number] COMPLETE:11/10/19 19:24 [facility] [address] Reason(s): Syncope CT HEAD WITHOUT CONTRAST, 11/10/19: [...] By Avi Casanova M.D. , 11/14/19 10:28, TXY Transcribe Initials: SSR, Transcribe Date: 11/11/19 11:39, Dictation Date: Copy for: EMERGENCY DEPT via modem Copy for: 710 MED REC DISCHARGED Page 1 of 1 Name Value Range Interpretation Code Description Data Ariana rce(s) Supporting Document(s) ID Date Data Source [id number] 11/13/2019 03:36:00 PM EDT [facility] ([facility], ) Name Value Range Interpretation Code Description Data Ariana rce(s) Supporting Document(s) Eosinophils [#/volume] in Blood by Automated count 0.0 0.0-0.5 [facility] ([facility]) ID Date Data Source [id number] 11/13/2019 03:36:00 PM EDT [facility] ([facility], ) Name Value Range Interpretation Code Description Data Ariana rce(s) Supporting Document(s) Monocytes [#/volume] in Blood by Automated count 0.6 0.0-0.8 [facility] ([facility], ) ID Date Data Source [id number] 11/13/2019 03:36:00 PM EDT [facility] ([facility]) Name Value Range Interpretation Code Description Data Ariana rce(s) Supporting Document(s) Lymphocytes [#/volume] in Blood by Automated count 2.7 1.5-5.0 [facility] ([facility], ) ID Date Data Source [id number] 11/13/2019 03:36:00 PM EDT [facility] ([facility], ) Name Value Range Interpretation Code Description Data Ariana rce(s) Supporting Document(s) Neutrophils [#/volume] in Blood by Automated count 5.9 1.5-8.5 [facility] ([facility], ) ID Date Data Source [id number] 11/13/2019 03:36:00 PM EDT [facility] ([facility]) Name Value Range Interpretation Code Description Data Ariana rce(s) Supporting Document(s) Nucleated erythrocytes/100 leukocytes [Ratio] in Blood by Au tomated count 0.0 0-0 [facility] ([facility], ) ID Date Data Source [id number] 11/13/2019 03:36:00 PM EDT [facility] ([facility] ) Name Value Range Interpretation Code Description Data Ariana rce(s) Supporting Document(s) Immature granulocytes/100 leukocytes in Blood by Automated count 0.8 0-3.0 [facility] ([facility] ) ID Date Data Source [id number] 11/13/2019 03:36:00 PM EDT [facility] ([facility] ) Name Value Range Interpretation Code Description Data Ariana rce(s) Supporting Document(s) Basophils/100 leukocytes in Blood by Automated count 0.3 0.0-1 .0 [facility] ([facility] ) ID Date Data Source [id number] 11/13/2019 03:36:00 PM EDT [facility] ([facility] ) Name Value Range Interpretation Code Description Data Ariana rce(s) Supporting Document(s) Eosinophils/100 leukocytes in Blood by Automated count 0.4 0.0 -3.0 [facility] ([facility], ) ID Date Data Source [id number] 11/13/2019 03:36:00 PM EDT [facility] ([facility], ) Name Value Range Interpretation Code Description Data Ariana rce(s) Supporting Document(s) Monocytes/100 leukocytes in Blood by Automated count 6.2 0.0-5 .0 [facility] ([facility] ) ID Date Data Source [id number] 11/13/2019 03:36:00 PM EDT [facility] ([facility] ) Name Value Range Interpretation Code Description Data Ariana rce(s) Supporting Document(s) Lymphocytes/100 leukocytes in Blood by Automated count 28.7 24. 0-44.0 [facility] ([facility] ) ID Date Data Source [id number] 11/13/2019 03:36:00 PM EDT [facility] ([facility] ) Name Value Range Interpretation Code Description Data Ariana rce(s) Supporting Document(s) Neutrophils [#/volume] in Blood by Automated count 63.6 36.0-66 .0 [facility] ([facility] ) ID Date Data Source [id number] 11/13/2019 03:36:00 PM EDT [facility] ([facility] ) Name Value Range Interpretation Code Description Data Ariana rce(s) Supporting Document(s) Platelets [#/volume] in Blood by Automated count 287 150-450 [facility] ID Date Data Source [id number] 11/13/2019 03:36:00 PM ED[address] [facility] Name Value Range Interpretation Code Description Data Ariana rce(s) Supporting Document(s) Erythrocyte distribution width [Ratio] by Automated count 12.9 11.5-14.5 [facility] ID Date Data Source [id number] 11/13/2019 03:36:00 PM EDT [facility] Name Value Range Interpretation Code Description Data Ariana rce(s) Supporting Document(s) Erythrocyte mean corpuscular hemoglobin concentration [Mass/volume] by Automated count 33.6 32.0-36.5 [facility] ID Date Data Source [id number] 11/13/2019 03:36:00 PM EDT [facility] Name Value Range Interpretation Code Description Data Ariana rce(s) Supporting Document(s) Erythrocyte mean corpuscular hemoglobin [Entitic mass] by Au tomated count 29.3 27.0-33.0 [facility] ) ID Date Data Source [id number] 11/13/2019 03:36:00 PM EDT [facility] Name Value Range Interpretation Code Description Data Ariana rce(s) Supporting Document(s) Erythrocyte mean corpuscular volume [Entitic volume] by Auto mated count 87.2 80.0-96.0 [facility] ([facility] ) ID Date Data Source [id number] 11/13/2019 03:36:00 PM EDT [facility] Name Value Range Interpretation Code Description Data Ariana rce(s) Supporting Document(s) Hematocrit [Volume Fraction] of Blood by Automated count 42.9 3 6.0-47.0 [facility] ID Date Data Source [id number] 11/13/2019 03:36:00 PM EDT [facility] ([facility]) Name Value Range Interpretation Code Description Data Ariana rce(s) Supporting Document(s) Hemoglobin [Mass/volume] in Blood 14.4 12.0-15.5 [facility] ([facility]) ID Date Data Source [id number] 11/13/2019 03:36:00 PM EDT [facility]) Name Value Range Interpretation Code Description Data Ariana rce(s) Supporting Document(s) Erythrocytes [#/volume] in Blood by Automated count 4.92 4.00-5 .40 [facility] ([facility]) ID Date Data Source [id number] 11/13/2019 03:36:00 PM EDT [facility] ([facility]) Name Value Range Interpretation Code Description Data Ariana rce(s) Supporting Document(s) Leukocytes [#/volume] in Blood by Automated count 9.2 4.0-10.0 [facility] ([facility]) ID Date Data Source [id number] 11/13/2019 03:36:00 PM EDT [facility] ([facility]) Name Value Range Interpretation Code Description Data Ariana rce(s) Supporting Document(s) Choriogonadotropin.beta subunit ( test) [Pres ence] in Serum or Plasma Laboratory test result [facility] ([facility]) ID Date Data Source [id number] 11/13/2019 03:36:00 PM EDT [facility] ([facility]) Name Value Range Interpretation Code Description Data Ariana rce(s) Supporting Document(s) Thyrotropin [Units/volume] in Serum or Plasma by Detec tion limit <= 0.005 mIU/L 0.815 0.358-3.740 [facility] ([facility], ) ID Date Data Source [id number] 11/13/2019 03:36:00 PM EDT [facility] ([facility]) Name Value Range Interpretation Code Description Data Ariana rce(s) Supporting Document(s) Ethanol [Presence] in Serum or Plasma Laboratory test result 0.000-0. 010 [facility] ([facility]) ID Date Data Source [id number] 11/13/2019 03:36:00 PM EDT [facility] ([facility]) Name Value Range Interpretation Code Description Data Ariana rce(s) Supporting Document(s) Troponin I.cardiac [Mass/volume] in Serum or Plasma Laboratory test result [facility] ([facility]) ID Date Data Source [id number] 11/13/2019 03:36:00 PM EDT [facility] ([facility], ) Name Value Range Interpretation Code Description Data Ariana rce(s) Supporting Document(s) Magnesium [Mass/volume] in Serum or Plasma 2.0 1.8-2.4 [facility] ([facility]) ID Date Data Source [id number] 11/13/2019 03:36:00 PM EDT [facility] ([facility]) Name Value Range Interpretation Code Description Data Ariana rce(s) Supporting Document(s) Creatine kinase.MB/Creatine kinase.total [Pure catalytic fraction] in Serum or Plasma by calculation 1.22 [facility] ([facility]) ID Date Data Source [id number] 11/13/2019 03:36:00 PM EDT [facility]) Name Value Range Interpretation Code Description Data Ariana rce(s) Supporting Document(s) Creatine kinase.MB [Mass/volume] in Serum or Plasma Laboratory test result [facility]) ID Date Data Source [id number] 11/13/2019 03:36:00 PM EDT [facility] Name Value Range Interpretation Code Description Data Ariana rce(s) Supporting Document(s) Creatine kinase [Enzymatic activity/volume] in Serum or Plasma 82 26-192 [facility] ([facility]) ID Date Data Source [id number] 11/13/2019 03:36:00 PM EDT [facility] Name Value Range Interpretation Code Description Data Ariana rce(s) Supporting Document(s) Calcium [Moles/volume] in Serum or Plasma 9.1 8.5-10.1 [facility] ) ID Date Data Source [id number] 11/13/2019 03:36:00 PM EDT [facility] ([facility]) Name Value Range Interpretation Code Description Data Ariana rce(s) Supporting Document(s) Anion gap 3 in Serum or Plasma 8 8-16 [facility] ([facility]) ID Date Data Source [id number] 11/13/2019 03:36:00 PM EDT [facility] ([facility]) Name Value Range Interpretation Code Description Data Ariana rce(s) Supporting Document(s) Carbon dioxide, total [Moles/volume] in Serum or Plasma 24 21 -32 [facility] ([facility]) ID Date Data Source [id number] 11/13/2019 03:36:00 PM EDT [facility] Name Value Range Interpretation Code Description Data Ariana rce(s) Supporting Document(s) Chloride [Moles/volume] in Serum or Plasma 106 98-107 [facility] ID Date Data Source [id number] 11/13/2019 03:36:00 PM EDT [facility] ([facility]) Name Value Range Interpretation Code Description Data Ariana rce(s) Supporting Document(s) Potassium [Moles/volume] in Serum or Plasma 3.5 3.5-5.1 [facility] ([facility]) ID Date Data Source [id number] 11/13/2019 03:36:00 PM EDT [facility] Name Value Range Interpretation Code Description Data Ariana rce(s) Supporting Document(s) Sodium [Moles/volume] in Serum or Plasma 138 136-145 [facility] ID Date Data Source [id number] 11/13/2019 03:36:00 PM EDT [facility] ([facility]) Name Value Range Interpretation Code Description Data Ariana rce(s) Supporting Document(s) Glomerular filtration rate/1.73 sq M.pre dicted [Volume Rate/Area] in Serum or Plasma by Creatinine-based formula (MDRD) Laboratory test result [facility] ([facility]) ID Date Data Source [id number] 11/13/2019 03:36:00 PM EDT [facility] Name Value Range Interpretation Code Description Data Ariana rce(s) Supporting Document(s) Creatinine [Mass/volume] in Serum or Plasma 0.46 0.55-1.30 [facility] ID Date Data Source [id number] 11/13/2019 03:36:00 PM EDT [facility] ([facility]) Name Value Range Interpretation Code Description Data Ariana rce(s) Supporting Document(s) Urea nitrogen [Mass/volume] in Serum or Plasma 12 7-18 [facility] ([facility]) ID Date Data Source [id number] 11/13/2019 03:36:00 PM EDT [facility] ([facility]) Name Value Range Interpretation Code Description Data Ariana rce(s) Supporting Document(s) Glucose [Mass/volume] in Serum or Plasma 99 70-100 [facility] ID Date Data Source [id number] 11/13/2019 03:36:00 PM EDT [facility] Name Value Range Interpretation Code Description Data Ariana rce(s) Supporting Document(s) aPTT in Blood by Coagulation assay 30.1 25.0-38.4 [facility]) ID Date Data Source [id number] 11/13/2019 03:36:00 PM EDT [facility] Name Value Range Interpretation Code Description Data Ariana rce(s) Supporting Document(s) Basophils [#/volume] in Blood by Automated count 0.0 0.0-0.2 [facility] ([facility]) ID Date Data Source [id number] 11/10/2019 05:11:[address] [facility] [address] [facility] Emergency Department [address] [place] [address] Phone #: ext- [phone] 11/10/2019 17:05 Patient: JACIEL RINCON Sex: F : 1995 Age: 24yWEIGHT:79.3 kg HEIGHT:62 inches BMI:32.0ALLERGIES: No Known Drug AllergyCHIEF COMPLAINT: syncope, [id number]: SyncopeLAB ORDERSOrder Description Priority Entered Acknowledged InitialedUrinalysis (Clean STAT 17:11/10/2019 18:58 Jean Stein RN Physician;Lipase STAT 17:11/10/2019 17:29 Donnie Stein RN Physician;CMP STAT 17:11/10/2019 17:29 Donnie Stein RN Physician;CBC w Diff STAT 17:11/10/2019 17:29 Donnie Stein RN Physician;HCG Serum Qual STAT 17:27 11/10/2019 17:29 Donnie Stein RN Physician;Troponin-T STAT 17:11/10/2019 17:29 Donnie Stein RN Physician;DIAGNOSTIC STUDY ORDERSOrder Description Priority Entered Acknowledged InitialedCT Head W/O Cont STAT 17:27 11/10/2019 17:29 Donnie(Oxygen?(No)) Noah Stein RN Physician; Reason for Study: SyncopeMEDICATION/IV/DRIP/FLUID ORDERSOrder Description Priority Entered Acknowledged InitialedNS IV : Bolus 1000 17:27 11/10/2019 17:54 TerrymL, then 125 mL/hr Noah Stein RN(can be titrated per Physician; [address] [facility] Emergency Department [address] [place] [address] Phone #: ext- [phone] 11/10/2019 17:05 --- Patient: JACIEL RINCON Sex: F : 1995 Age: 24yadditionalphysicianinstruction)GENERAL ORDERSOrder Description Priority Entered Acknowledged InitialedEKG 17:27 11/10/2019 17:45 Fiona Alvarenga proposal engineerCornell Mcbride ER Physician; [id number] Monitor 17:27 11/10/2019 17:45 Fiona(continuous) Noah Alvarenga proposal engineerCornell Mcbride ER Physician; [id number] oximeter 17:27 11/10/2019 17:29 Donnie(Spot Check) Noah Stein RN Physician;Saline Lock 17:27 11/10/2019 17:29 Donnie Stein RN Physician;[Electronically signed by Donnie Stein RN (19:13 11/10/2019)][Electronically signed by Noah Alvarenga Physician (19:26 11/10/2019)][Electronically locked by Donnie Stein RN (19:13 11/10/2019)] Name Value Range Interpretation Code Description Data Ariana rce(s) Supporting Document(s) ID Date Data Source [id number] 11/10/2019 05:11:[address] [facility] [address] [facility] Emergency Department [address] [place] [address] Phone #: ext- [phone] 11/10/2019 17:05 [...] rce(s) Supporting Document(s) ID Date Data Source [id number] 11/10/2019 05:11:[address] [facility] [address] [facility] Emergency Department [address] [place] [address] Phone #: ext- [phone] 11/10/2019 17:05 Patient: JACIEL RINCON Sex: F : 1995 Age: 24yWeight: 79.3 kgHeight/Length: 62 inBMI: 32ALLERGIES: No Known Drug Allergy Date/Time Medication Administered Medication OrderedStart NS [IV] NS IV : Bolus 1000 mL, then 46860:44 11/10/2019 Dose: IV Fluids mL/hr (can be titrated Marcelo Stein RN Rate: 125 mL/hr over 5 hour(s) additional physician instruction)---- Bolus: 1000 mL over 1 hour(s)Stop Dispensed: 1000 mL bag18:59 11/10/2019 Site: #1 left Rayray Stein RN Name Value Range Interpretation Code Description Data Ariana rce(s) Supporting Document(s) ID Date Data Source [id number] 11/10/2019 05:11:[address] [facility] [address] [facility] Emergency Department [address] [place] [address] Phone #: ext- [phone] 11/10/2019 17:05 Patient: JACIEL RINCON Sex: F [...] up:Follow up with a neurologist Dr. Johnson ([facility]) - if not better. Call for the next availableappointment. Reason for referral: evaluation, treatment and Syncope.Understanding of the discharge instructions verbalized by patient.Follow-up with: Som Salazar MD, Cardiology, , [address] [place] [address], [id number] Follow up if not better. Call for [...] Sudden fear Pain Nausea [address] [facility] Emergency Department [address] [place] [address] Phone #: ext- [phone] 11/10/2019 17:05 Patient: JACIEL RINCON Sex: F : 1995 Age: 24y Emotional [...] provider, or as advised. [address] [facility] Emergency Department [address] [place] [address] Phone #: ext- [phone] 11/10/2019 17:05 Patient: [...] seeing Extreme drowsiness, confusion, dizziness, or fainting [id number] [employer]. [address] [place] [address]. All rights reserved. This information is not intended as asubstitute for professional medical care. Always follow your healthcare professional's instructions. You have been given the following additional information: Syncope, Unk Cause(Electronically signed by Noah Alvarenga, Physician 11/10/2019 19:26) Name Value Range Interpretation Code Description Data Ariana rce(s) Supporting Document(s) ID Date Data Source [id number] 11/10/2019 05:11:[address] [facility] 1 Clinical Report - Nurses [facility] Emergency Department [address] [place] [address] Phone #: ext- [phone] 11/10/2019 17:05 Patient: JACIEL RINCON Sex: F : 1995 Age: 24yTRIAGEArrived by private vehicle. ( Pt woke up on floor while making bottle "unconscious for 1 hour, large knot onhead" h/o same in October, seen at [facility]).Acuity: LEVEL 3.Chief Complaint: SYNCOPE.SEPSIS SCREEN: SIRS Screen negative. --17:09 11/10/19 Harry Falk R.N.17:06 11/10/19. BP: 153/87. HR: 85. RR: 14. O2 saturation: 100%. Temp: 97.7 F. Pain level now 01/12.--17:09 11/10/19 Harry Falk R.N.Weight: 79.3 kg. Height/Length: 62 inches. BMI: 32. --17:08 11/10/19 Harry Falk R.N.MedicationsNone. --17:07 11/10/19 Harry Falk R.N.AllergiesNo Known Drug Allergy. --17:07 11/10/19 Harry Falk R.N.PROBLEMS:no known problems.ADDITIONAL SURGERIES:Lamont teeth. --17:07 11/10/19 Harry Falk R.N.HistoryPAST MEDICAL [...] Abuse denied. 2 Clinical Report - Nurses [facility] Emergency Department [address] [place] [address] Phone #: ext- [phone] 11/10/2019 17:05 Patient: JACIEL RINCON Sex: F : 1995 Age: 24y NUTRITIONAL RISK ASSESSMENT: The nutritional risk assessment revealed no deficiencies. FUNCTIONAL ASSESSMENT: Functional assessment: no impairments noted. LEARNING NEEDS ASSESSMENT: The learning needs assessment revealed no barriers. FALL RISK ASSESSMENT: Fall risk assessment completed. No risk factors identified. SKIN INTEGRITY ASSESSMENT: Skin integrity risk assessment completed. No skin integrity risk identified. --17:11/10/19 Harry Falk R.N. Int erventions Identification band on patient. To treatment room. --17:11/10/19 Harry Falk R.N.PHYSICAL KDEHEMPJXX77:18 11/10/19. Ambulatory to room.GENERAL / NEURO / PSYCH: Oriented X 4. Alert. Speech within normal limits.HEENT: No facial asymmetry noted.RESPIRATORY: Breath sounds within normal limits. Respirations not labored.CVS: Capillary refill less than 2 seconds.GI / : Abdomen soft and nontender.SKIN: Skin is warm and dry. --17:18 11/10/19 Donnie Stein RN HEENT: Head: ecchymosis present in the left parietal area (behind left ear). --17:11/10/19 Donnie Stein RN.NURSING PROGRESS NOTESReassurance given to the patient. Call light placed in reach of patient. Bed placed in lowest position.--17:10 11/10/19 Harry Falk R.N. EKG time: (17:35 11/10/2019). EKG was performed by a tech and shown to the ED physician. Checked patient name and birthdate. Blood samples drawn by tech. ([id number]). --17:35 11/10/19 Donnie Stein RN 17:44 11/10/2019 [...] Stein RN Cardiac rhythm: normal sinus rhythm; (2995). Head of bed elevated 75 degrees. --17:54 11/10/19 Donnie Stein RN 3 Clinical Report - Nurses [facility] Emergency Department [address] [place] [address] Phone #: ext- [phone] 11/10/2019 17:05 Patient: JACIEL RINCON Sex: F : 1995 Age: 24y Patient transported to radiology by wheelchair with hvac residential service technician. --18:22 11/10/19 Kristy Diaz R.N. Patient returned from radiology by wheelchair with hvac residential service technician. ([id number]). --18:44 11/10/19 Donnie Stein RN 18:59 11/10/2019 [...] placed in belongings bag. --17:28 11/10/19 Harry Falk, RCharlieN. Charted On Wrong Patient --19:09 11/10/19 [...] changes). Reviewed referral to a neurologist and special procedures nurse. Patient verbalized understanding. Written instructions provided in Danish. The patient was discharged by the physician. She was discharged home. She left ambulatory and via private vehicle. Patient driving. --19:12 11/10/19 Donnie Stein RN 19:05 11/10/2019 Site #1 removed upon discharge. Catheter intact. Bandaid applied. --19:13 11/10/19 Donnie Stein RN.Locked/Released at 11/10/2019 19:13 by Donnie Stein RN 4 Clinical Report - Nurses [facility] Emergency Department [address] [place] [address] Phone #: ext- [phone] 11/10/2019 17:05 Patient: JACIEL RINCON Sex: F : 1995 Age: 24y Name Value Range Interpretation Code Description Data Ariana rce(s) Supporting Document(s) ID Date Data Source [id number] 11/10/2019 05:11:[address] [facility] 1 Clinical Report - Physicians/Mid Levels [facility] Emergency Department [address] [place] [address] Phone #: ext- [phone] 11/10/2019 17:05 Patient: [...] episode last month and was evaluated at [facility]). Similar symptoms previously. Patient has had similar [...] normal. 2 Clinical Report - Physicians/Mid Levels [facility] Emergency Department [address] [place] [address] Phone #: ext- [phone] 11/10/2019 17:05 Patient: JACIEL RINCON Sex: F [...] making process. Lipase: (NOAH: 11/10/2019 17:33) ( [facility] 11/10/2019 18:09) Final results Test Result Flag Units (Reference) LIPASE 18 U/L (13 - 60) CMP: (NOAH: 11/10/2019 17:33) ( [facility] 11/10[facility] 18:09) Final results Test Result Flag [...] Final results 3 Clinical Report - Physicians/Mid Levels [facility] Emergency Department [address] [place] [address] Phone #: ext- [phone] 11/10/2019 17:05 Patient: [...] INDICATEDBeta-HCG, Qual Serum: (NOAH: 11/10/2019 17:33) ( [facility] 11/10/2019 17:58) Final results Test Result Flag Units (Reference) HCG SERUM QUAL NEGATIVE (NORMAL: NEGAT HCG SERUM QL REENTER NEGATIVE (NORMAL: NEGAT { KIT LOT # [id number] ){ KIT EXP DATE05/05/21 ){ PROCEDURAL CONTROL VALID)Troponin-T: (NOAH: 11/10/2019 17:33) ( [facility] 11/10/2019 18:03) Final results Test Result Flag [...] NAD). 4 Clinical Report - Physicians/Mid Levels [facility] Emergency Department [address] [place] [address] Phone #: ext- [phone] 11/10/2019 17:05 Patient: JACIEL RINCON Sex: F : 1995 Age: 24yPROGRESS AND PROCEDURESCourse of Care: 18:51 Nov 10 2019. Patient is stable. Symptoms better. 18:51 Nov 10 2019. Labs, EKG and CT head are all unremarkable. I will recommend evaluation by a special procedures nurse (Dr. Salazar) and a possible Holter Monitor [...] Follow up with a neurologist Dr. Johnson ([facility]) - if not better. Call for the next available appointment. Reason for referral: evaluation, treatment and Syncope. Understanding of the discharge instructions verbalized by patient. Follow-up with: Som Salazar MD, Cardiology, , [address] [place] [address], , [place], [address] Follow up if not better. Call for the next available appointment. Reason for referral: evaluation, treatment and Syncope - Need ECHO / stress test / Holter.(Electronically signed by Noah Alvarenga, Physician 11/10/2019 19:26) Name Value Range Interpretation Code Description Data Ariana rce(s) Supporting Document(s) ID Date Data Source [id number] 11/10/2019 06:09:[address] [facility] Name Value Range Interpretation Code Description Data Ariana rce(s) Supporting Document(s) COMPREHENSIVE METABOLIC PANEL [facility] COMPREHENSIVE METABOLIC PANEL Sodium [Moles/volume] in Serum or Plasma 140 mEq/L 134 - 153 [facility] Potassium [Moles/volume] in Serum or Plasma 4.2 mEq/L 3.6 - 5.0 [facility] Chloride [Moles/volume] in Serum or Plasma 103 mEq/L 98 - 107 [facility] Carbon dioxide, total [Moles/volume] in Serum or Plasma 25 MEQ/L 22 - 30 [facility] Glucose [Mass/volume] in Serum or Plasma 87 MG/DL 65 - 110 [facility] BUN 11 MG/DL 7 - [facility] Creatinine [Mass/volume] in Serum or Plasma 0.4 MG/DL 0.7 - 1.[address] [facility] BUN/CREAT 28 8 - 27 H [facility] al Protein [Mass/volume] in Serum or Plasma 7.1 G/DL 6.3 - 8.2 [facility] Albumin [Mass/volume] in Serum or Plasma 4.8 G/DL 3.9 - 5.0 [facility] Globulin [Mass/volume] in Serum by calculation 2.3 GM/DL 2.4 - 3.[address] [facility] A/G RATIO 2.1 0.8 - 2.0 H [facility] Calcium [Mass/volume] in Serum or Plasma 9.3 MG/DL 8.4 - 10.2 [facility] Bilirubin.total [Mass/volume] in Serum or Plasma <0.7 MG/DL 0.2 - 1.3 [facility] Alkaline phosphatase [Enzymatic activity/volume] in Serum or Plasma 93 U/L 38 - 126 [facility] Aspartate aminotransferase [Enzymatic activity/volume] in Serum or Plasma 14 U/L 5 - 40 [facility] Alanine aminotransferase [Enzymatic activity/volume] in Seru m or Plasma 8 U/L 7 - 56 [facility] Anion gap 3 in Serum or Plasma 12.0 mmol/L 8.0 - 16.0 [facility] AGE 24 yrs [facility] NON-AA GFR >60 mL/min [facility] ital AFR AMER GFR >60 mL/min [facility] spital Male GFR In terprentation 20-49 yrs [...] >32 mL/min Normal ID Date Data Source [id number] 11/10/2019 06:09:[address] [facility] Name Value Range Interpretation Code Description Data Ariana rce(s) Supporting Document(s) Lipase [Enzymatic activity/volume] in Serum or Plasma 18 U/L 13 - 60 [facility] ID Date Data Source [id number] 11/10/2019 06:03:[address] [facility] Name Value Range Interpretation Code Description Data Ariana rce(s) Supporting Document(s) TROPONIN T 0.01 NG/ML 0.00 - 0.10 [facility] TROPONIN T0.1 ng/ml Recommended as the c linical threshold value forTroponin T. ID Date Data Source [id number] 11/10/2019 05:58:[address] [facility] Name Value Range Interpretation Code Description Data Ariana rce(s) Supporting Document(s) HCG SERUM QUAL NEGATIVE NORMAL: NEGATIVE [facility] HCG SERUM QL REENTER NEGATIVE NORMAL: NEGATIVE [facility] { KIT LOT # [id number] ){ KIT EXP DATE 05/05/21 ){ PROCEDURAL CONTROL VALID ) ID Date Data Source [id number] 11/10/2019 05:44:[address] [facility] Name Value Range Interpretation Code Description Data Ariana rce(s) Supporting Document(s) CBC W/AUTOMATED DIFF [facility] COMPLETE BLOOD COUNT Leukocytes [#/volume] in Blood by Automated count 9.5 10^3/uL 4.2 - [address] [facility] Erythrocytes [#/volume] in Blood by Automated count 4.76 10^6/uL 4. 20 - 5.40 [facility] Hemoglobin [Mass/volume] in Blood 13.8 g/dL 12.0 - 16.0 [facility] Hematocrit [Volume Fraction] of Blood by Automated count 41.6 % 3 7.0 - 47.0 [facility] Erythrocyte mean corpuscular volume [Entitic volume] by Auto mated count 87.4 fL 81.0 - 101 [facility] Erythrocyte mean corpuscular hemoglobin [Entitic mass] by Automated count 29.0 pg 27.0 - 34.0 [facility] Erythrocyte mean corpuscular hemoglobin concentration [Mass/volume] by Automated count 33.2 g/dL 31.0 - 36.0 [facility] Erythrocyte distribution width [Ratio] by Automated count 13.0 % 11.5 - 14.5 [facility] Platelets [#/volume] in Blood by Automated count 291 10^3/uL 150 - [address] [facility] Platelet mean volume [Entitic volume] in Blood by Automated count 9.2 fL 7.4 - 10.4 [facility] Neutrophils/100 leukocytes in Blood by Automated count 57.2 % 37. 0 - 80.0 [facility] Lymphocytes/100 leukocytes in Blood by Manual count 33.4 % 25.0 - 40.0 [facility] Monocytes/100 leukocytes in Blood by Automated count 7.5 % 3.0 - 8.0 [facility] Eosinophils/100 leukocytes in Blood by Automated count 0.8 % 0.0 - 7.0 [facility] Basophils/100 leukocytes in Blood by Automated count 0.4 % 0.0 - 2.5 [facility] %IG 0.7 % 0.0 - 0.0 H [facility] %NRBC 0.0 % 0.0 - 0.0 [facility] Neutrophils [#/volume] in Blood by Automated count 5.42 10^3/uL 2.00 - 6.90 [facility] Lymphocytes [#/volume] in Blood by Automated count 3.17 10^3/uL 0.60 - 3.40 [facility] Monocytes [#/volume] in Blood by Automated count 0.71 10^3/uL 0.00 - 0.90 [facility] Eosinophils [#/volume] in Blood by Automated count 0.08 10^3/uL 0.00 - 0.70 [facility] Basophils [#/volume] in Blood by Automated count 0.04 10^3/uL 0.00 - 0.20 [facility] #IG 0.07 10^3/uL 0.00 - 0.10 [facility] #NRBC 0.00 10^3/uL 0.00 - 0.00 [facility] MANUAL DIFF NOT INDICATED [facility] RBC MORPH NOT INDICATED [facility] ID Date Data Source [id number] 10/21/2019 12:44:00 PM EDT [facility] ([facility]) Name Value Range Interpretation Code Description Data Ariana rce(s) Supporting Document(s) Laboratory test finding (navigational concept) Laboratory test result [facility]) ID Date Data Source [id number] 10/21/2019 12:06:00 PM EDT [facility] ([facility]) Name Value Range Interpretation Code Description Data Ariana rce(s) Supporting Document(s) Glucose [Mass/volume] in Capillary blood by Glucometer 145 70- 105 [facility] ([facility]) Procedure Social History Code Duration Value Status Description Data Source(s ) Smoking 05/17/2020 12:00:00 AM EST Patient has never smoked co mpleted Patient has never smoked [facility] ([facility]) Vital Signs ID Date Data Source UNK Name Value Range Interpretation Code Description Data Source(s) Body mass index (BMI) [Ratio] 31.5 kg/m2 31.5 k g[facility]m2 [facility] Body height 62 [in_i] 62 [in_i] [facility] ([facility]) 5'2" Body weight 172.00 [lb_av] 172.00 [lb_av] MEDEN T ([facility], [facility]) Body temperature 99.0 [degF] 99.0 [degF] [facility] ([facility]) Oxygen saturation in Arterial blood by Pulse oximetry 97 % 97 % [facility] ([facility], [facility]) Respiratory rate 18 /min 18 /min [facility] ( [facility], [facility]) Heart rate 83 /min 83 /min [facility] [facility], [facility]) Diastolic blood pressure 96 mm[Hg] 96 mm[Hg] MEDENT ([facility], [facility]) Systolic blood pressure 138 mm[Hg] 138 mm[Hg] M EDENT ([facility], [facility]) Body mass index (BMI) [Ratio] 31.0 kg/m2 31.0 k g/m2 MED[facility] ([facility], ) Body weight 172.00 [lb_av] 172.00 [lb_av] MEDEN T ([facility], ) Body height 62.5 [in_i] 62.5 [in_i] MEDENT ([facility], ) 5'2.50" Respiratory rate 12 /min 12 /min MED[facility] ( [facility], ) Body mass index (BMI) [Ratio] 31.0 kg/m2 31.0 k g/m2 MED[facility] ([facility], ) Body weight 171.50 [lb_av] 171.50 [lb_av] MEDEN T ([facility], )
[2020-07-17] MEDS ORDERED: METOCLOPRAMIDE INJ 10MG/2ML VIAL (J2765 PER 1) IV ONE (09:45)
[2020-07-17 10:15] LABS: ALBUMIN 4.1 GM/DL (3.2-5.2); ALT/SGPT 15 U/L (12-78); BILIRUBIN,DIRECT 0.2 MG/DL (0.0-0.2); BILIRUBIN,TOTAL 0.8 MG/DL (0.2-1.0); BLOOD UREA NITROGEN 7 MG/DL (7-18); CALCIUM LEVEL 9.2 MG/DL (8.5-10.1); CARBON DIOXIDE LEVEL 27 MEQ/L (21-32); CHLORIDE LEVEL 106 MEQ/L (98-107); CREATININE FOR GFR 0.53 MG/DL (0.55-1.30); GLOMERULAR FILTRATION RATE > 60.0 (>60); GLUCOSE, FASTING 94 MG/DL (70-100); HCG, SERUM QUANTITATIVE < 1.0 MIU/ML; LIPASE 51 U/L (73-393); POTASSIUM SERUM 3.7 MEQ/L (3.5-5.1); SODIUM LEVEL 138 MEQ/L (136-145); TOTAL PROTEIN 7.1 GM/DL (6.4-8.2)
--- NOTE | 2020-07-17 10:57 | REP ---
INDICATION: bilat pelvic pain, nv. COMPARISON: None. TECHNIQUE: Transabdominal scanning performed. FINDINGS: Uterine dimensions are 7.8 x 5.1 x 5.5 cm. Endometrial echo is 11 mm in AP dimension and centrally placed. The bladder is empty. The right ovary has dimensions of 3.3 x 1.9 x 3.9 cm. It's Doppler flow is normal with a resistive index of 0.59. The left ovary dimensions are 2.8 x 2.1 x 1.5 cm. It's Doppler flow was normal with resistive index of 0.55. There is no adnexal mass identified. No free fluid is seen in the cul-de-sac. IMPRESSION: Negative pelvic ultrasound. <Electronically signed by Jesus Mukherjee > 07/17/20 [id number]
[2020-07-17] MEDS ORDERED: ZOFR4TAB16 PO (11:09)
[2020-07-17 11:14] VITALS: BP 113/79
== END 2020-07-17 11:26 | disposition home or self-care (01) ==
LOC: M ED 08:25
DX: R10.2 Pelvic and perineal pain (principal); R11.2 Nausea with vomiting, unspecified; N91.2 Amenorrhea, unspecified; Z91.040 Latex allergy status; Z79.899 Other long term (current) drug therapy
CPT/HCPCS: 36415; 76856; 80048; 80076; 81001; 83690; 84702; 85025; 96361; 96374; 99284; J2765